=== PATIENT | female | born 1980 | race Caucasian/White ===

== ENCOUNTER 2017-03-26 22:51 | Inpatient (IN) | payer OTHER ==
[~2017-03-26] VITALS: Ht 157.5 cm; Wt 69.9 kg
[~2017-03-26 22:51] MED LIST: ADDE30CA PO; AMBI10TA PO; KLON1TAB PO; LEVO50TA4 PO; PERC5TAB6 PO; TRAZ50TA2 PO; VITA200015 PO; VITA500T53 PO; VITMTA PO
[2017-03-26] MEDS ORDERED: NS 1,000 ML IV ONE (23:30)
[2017-03-26 23:37] LABS: VENOUS O2 SATURATION 92.1 % (60.0-80.0); VENOUS PARTIAL PRESSURE CO2 40.2 mmHg (38.0-50.0); VENOUS PARTIAL PRESSURE O2 68.1 mmHg (30.0-50.0); VENOUS TOTAL CO2 22.6 MEQ/L (24.0-28.0)
[2017-03-26 23:38] LABS: BASO % 0.5 % (0.0-1.0); EOS % 0.5 % (0.0-3.0); LARGE UNSTAINED CELL # 0.1 K/mm3 (0.0-0.4); LYMPH # 1.5 K/mm3 (1.5-4.5); LYMPH % 19.9 % (24.0-44.0); MEAN CORPUSCULAR HEMOGLOBIN 24.6 pg (27.0-33.0); MEAN CORPUSCULAR HGB CONC 30.9 g/dl (32.0-36.5); MEAN CORPUSCULAR VOLUME 79.6 fl (80.0-96.0); MONO # 0.3 K/mm3 (0.0-0.8); MONO % 3.3 % (0.0-5.0); NEUTROPHILS # 5.6 K/mm3 (1.8-7.7); NEUTROPHILS % 74.8 % (36.0-66.0); PLATELET COUNT, AUTOMATED 389 k/mm3 (150-450); RED CELL DISTRIBUTION WIDTH 17.3 % (11.5-14.5); WHITE BLOOD COUNT 7.5 K/mm3 (4.0-10.0)
[2017-03-26 23:55] LABS: CONTROL LINE HCG INT CTR LINE PRESENT
[2017-03-27 00:07] LABS: ALBUMIN 3.9 GM/DL (3.2-5.2); ALBUMIN/GLOBULIN RATIO 1.05 (1.00-1.93); ALKALINE PHOSPHATASE 95 U/L (45-117); ALT/SGPT 17 U/L (12-78); ANION GAP 7 MEQ/L (8-16); AST/SGOT 15 U/L (15-37); BILIRUBIN,DIRECT 0.2 MG/DL (0.0-0.2); BILIRUBIN,TOTAL 0.9 MG/DL (0.2-1.0); BLOOD UREA NITROGEN 13 MG/DL (7-18); CALCIUM LEVEL 8.9 MG/DL (8.5-10.1); CARBON DIOXIDE LEVEL 26 MEQ/L (21-32); CHLORIDE LEVEL 107 MEQ/L (98-107); CREATININE FOR GFR 0.78 MG/DL (0.55-1.02); GLOMERULAR FILTRATION RATE > 60.0 (>60); GLUCOSE, FASTING 92 MG/DL (70-105); POTASSIUM SERUM 3.6 MEQ/L (3.5-5.1); SODIUM LEVEL 140 MEQ/L (136-145); TOTAL PROTEIN 7.6 GM/DL (6.4-8.2)
[2017-03-27 01:07] LABS: METHADONE URINE NEGATIVE (NEGATIVE)
[2017-03-27] MEDS ORDERED: NS 1,000 ML IV ONE (02:45)
--- NOTE | 2017-03-27 05:38 | ECGEPIP ---
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
[2017-03-27 15:49] VITALS: BP 123/74
[2017-03-27] MEDS ORDERED: ACETAMINOPHEN TAB 650MG DOSE (2X325MG) PO PRN (17:00)
[2017-03-27] MEDS ORDERED: MAALOX 30 ML SUSP *UDC PO PRN (17:00)
[2017-03-27] MEDS ORDERED: MOM 30ML SUSPENSION UDC PO PRN (17:00)
[2017-03-27] MEDS: QUEtiapine FUMARATE 100 MG TAB PO SCH (21:49)
[2017-03-27] MEDS: traZODone 50 MG TAB PO PRN (21:49)
[2017-03-28 06:59] VITALS: BP 105/60
--- NOTE | 2017-03-28 09:17 | HPEPDOC ---
Medical History and Physical Date of Admission March 27, 2017 at 11:42 History and Physical PCP: none ATTENDING: Dr. Jimi Simms HPI: 36yoF admitted to [facility] for unspecified depressive disorder, being medically examined today. Patient was evaluated in the emergency room after stating she had taken an unknown [id number] sleep aid 03/26/17. Poison control was consulted, the patient was observed in the emergency department and subsequently medically cleared for admission to [facility]. No acute medical complaints today. Denies any fevers, chills, weakness, fatigue, JEROME, CP, SOB, cough, palpitations, abdominal pain, N/V/D or changes in bowel or bladder habits. PMHx: Depression Anxiety Bipolar disorder PSHX: History of facial reconstructive surgery secondary to trauma/fracture SOCHX: Resides in: [place] Marital Status: Kids: None Employment: Unemployed Tobacco use: Denies ETOH: Denies Illicit Drugs: Patient states history of cocaine use, used prior to admission. History of heroin and ecstasy. IV Drug Use: Heroin in the past. Tattoos done unprofessionally: Denies FAMHX: Mother: Alive, well Father: Alive, diabetes Siblings: One brother Alive, well Children: None Unexpected deaths due to medical reasons: None. ROS: As noted in HPI, otherwise 11pt ROS of systems reviewed and remarkable only for LMP unknown PE: GEN: 36 yo F, appears stated age. Well-nourished, well developed. No acute distress. Alert and oriented x 3. Patient with flat affect, difficulty answering questions, avoids eye contact. HEENT: Normocephalic, atraumatic. Pupils are equal, round, and reactive to light. Extraocular movements are intact. No nystagmus appreciated. Sclera are nonicteric. Conjunctiva without injection. Nose midline. Nasal turbinates without bogginess. EACs both patent BL. TMs both visualized and lopez with good cone of light, no bulging or erythema. No facial asymmetry. Moist mucous membranes. Dentition fair. Pharynx pink and moist, no cobblestoning. Neck supple , trachea midline. No lymphadenopathy or thyromegaly appreciated. CHEST: Regular rate and rhythm, +S1, +S2 LUNGS: Clear to auscultation bilaterally. No wheezes, rales, or rhonchi. Breathing appears symmetric and easy. Patient is speaking in full sentences. No accessory muscle use. ABD: Round, soft, non-tender, non-distended. +Bowel sounds throughout. No rebound or guarding. No costovertebral angle tenderness. EXT: Pulses 2+ bilaterally dorsalis pedis and radial. No lower extremity edema appreciated. SKIN: [place], dry, warm. Capillary refill <2sec. No rashes. NEURO: Alert and oriented x 3. Cranial nerves III-XII are intact. No focal deficits appreciated. EK03/26/17 SINUS RHYTHM A&P: 36yoF admitted to [facility] for unspecified depressive disorder 1. Psych. Plan per Psychiatry. EKG on file. 2. History of IVDU. Patient states screened for HIV/hepatitis in the past. Declines rescreening. 3. Abnormal TSH. Recheck TFTs. 4. Follow up. No Primary Care Provider. Will attempt to establish PCP on discharge. 5. Substance use. Per psychiatry. 6. Lizzette safety aid present throughout exam. Vital Signs Vital Signs Date Time Temp Pulse Resp B/P (MAP) Pulse Ox O2 Delivery O2 Flow Rate FiO2 03/28/17 06:59 98.9 65 18 105/60 (75) Room Air 03/27/17 15:10 100 Laboratory Data Labs 24H Item Value Date Time Salicylates Level < 1.7 MG/DL L 03/26/172322 Urine Opiates Screen NEGATIVE 03/27/1714 Urine Methadone Screen NEGATIVE 03/27/1714 Acetaminophen Level < 2.0 UG/ML L 03/26/172322 Urine Barbiturates Screen NEGATIVE 03/27/1714 Urine Phencyclidine Screen NEGATIVE 03/27/17 001 Urine Amphetamines Screen NEGATIVE 03/27/17 001 Urine Benzodiazepines Screen NEGATIVE 03/27/1714 Urine Cocaine Metabolite Screen POSITIVE H 03/27/17 001 Urine Cannabinoids Screen NEGATIVE 03/27/1714 Ethyl Alcohol Level < 0.003 % 03/26/172322 Item Value Date Time White Blood Count 7.5 K/mm3 03/26/172322 Red Blood Count 4.11 M/mm3 03/26/172322 Hemoglobin 10.1 g/dl L 03/26/172322 Hematocrit 32.7 % L 03/26/172322 Mean Corpuscular Volume 79.6 fl L 5/30/17 2323 Mean Corpuscular Hemoglobin 24.6 pg L 03/26/173 Mean Corpuscular Hemoglobin Concent 30.9 g/dl L 03/26/173 Red Cell Distribution Width 17.3 % H 03/26/173 Platelet Count 389 k/mm3 03/26/173 Sodium Level 140 MEQ/L 03/26/17 2323 Potassium Level 3.6 MEQ/L 03/26/17 2323 Chloride Level 107 MEQ/L 03/26/17 2323 Carbon Dioxide Level 26 MEQ/L 03/26/17 2323 Anion Gap 7 MEQ/L L 03/26/17 2323 Blood Urea Nitrogen 13 MG/DL 03/26/17 2323 Creatinine 0.78 MG/DL 03/26/173 Glomerular Filtration Rate > 60.0 03/26/17 2323 Fasting Glucose 92 MG/DL 03/26/17 2323 Calcium Level 8.9 MG/DL 03/26/17 2323 Total Bilirubin 0.9 MG/DL 03/26/17 2323 Direct Bilirubin 0.2 MG/DL 03/26/17 2323 Aspartate Amino Transf (AST/SGOT) 15 U/L 03/26/17 2323 Alanine Aminotransferase (ALT/SGPT) 17 U/L 03/26/17 2323 Alkaline Phosphatase 95 U/L 03/26/17 2323 Total Creatine Kinase 109 U/L 03/26/173 Total Protein 7.6 GM/DL 03/26/17 2323 Albumin 3.9 GM/DL 03/26/173 Albumin/Globulin Ratio 1.05 03/26/173 Thyroid Stimulating Hormone (TSH) 6.000 uIU/ML H 03/26/173 Human Chorionic Gonadotropin, Qual NEGATIVE 03/26/17 2323 Home Medications No Active Prescriptions or Reported Meds Allergies Coded Allergies: No Known Allergies (Verified , 01/20/08) Erin Lombardo Mar 28, 2017 09:17
[2017-03-28] MEDS: QUEtiapine FUMARATE 100 MG TAB PO SCH (09:27)
[2017-03-28 18:00] VITALS: BP 108/64
[2017-03-28] MEDS ORDERED: LITHIUM CARBONATE 300 MG CAP PO SCH (21:00)
[2017-03-28] MEDS: traZODone 50 MG TAB PO PRN (21:19)
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
[2017-03-29 06:00] VITALS: BP 111/58
[2017-03-29 07:19] LABS: MEAN CORPUSCULAR HGB CONC 30.3 g/dl (32.0-36.5); MEAN CORPUSCULAR VOLUME 79.2 fl (80.0-96.0); RED CELL DISTRIBUTION WIDTH 17.4 % (11.5-14.5); WHITE BLOOD COUNT 5.6 K/mm3 (4.0-10.0)
[2017-03-29 07:53] LABS: THYROXINE (T4) 5.8 UG/DL (4.5-12.0)
[2017-03-29 08:18] LABS: PERCENT SATURATION 4.5 % (13.2-37.4)
[2017-03-29 08:52] LABS: FOLATE 11.6 NG/ML (>5.4)
[2017-03-29] MEDS: ATOMOXETINE HCL 40 MG CAP (STRATTERA) PO SCH (09:28)
[2017-03-29] MEDS: LITHIUM CARBONATE 300 MG CAP PO SCH (09:28)
[2017-03-29 18:00] VITALS: BP 115/63
[2017-03-29] MEDS: traZODone 50 MG TAB PO PRN (22:28)
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
[2017-03-30 06:06] VITALS: BP 133/63
[2017-03-30 06:44] LABS: MEAN CORPUSCULAR HEMOGLOBIN 24.7 pg (27.0-33.0); MEAN CORPUSCULAR VOLUME 79.4 fl (80.0-96.0); RED CELL DISTRIBUTION WIDTH 17.5 % (11.5-14.5); WHITE BLOOD COUNT 6.5 K/mm3 (4.0-10.0)
[2017-03-30] MEDS: ATOMOXETINE HCL 40 MG CAP (STRATTERA) PO SCH (09:30)
[2017-03-30] MEDS: LITHIUM CARBONATE 300 MG CAP PO SCH (09:30)
[2017-03-30 18:08] VITALS: BP 110/61
[2017-03-30] MEDS ORDERED: traZODone 100 MG TAB PO PRN (18:15)
--- NOTE | 2017-03-31 02:12 | IPN ---
DATE OF SERVICE: 03/30/2017 The patient today states that she is still depressed. She says her mood is about a 6/10 with the closer to 10 as the most depressed. She is not feeling as hopeless and helpless. Her sleep was "crappy." MENTAL STATUS EXAMINATION: This patient is alert and oriented times three. Eye contact is fair. Psychomotor activity is decreased. There is no formal thought disorder noted. She is verbally spontaneous. The patient remains depressed. Affect is full range and appropriate. She is not psychotic, suicidal, homicidal. Concentration and memory is good. Insight and judgment is poor. DIAGNOSES: 1. Bipolar disorder type 1, depressed, moderate. 2. Cocaine use disorder. TREATMENT PLAN: At this point, we will further observe and evaluate this patient for ongoing depression. She is denying suicidal ideation, so we will monitor for continued resolution of suicidal ideation and we will continue to titrate her medication as indicated. We will increase the trazodone to 100 mg nightly as needed for insomnia.
[2017-03-31 07:20] VITALS: BP 92/50
[2017-03-31 08:00] VITALS: BP 120/75
[2017-03-31] MEDS: LITHIUM CARBONATE 300 MG CAP PO SCH (08:54)
[2017-03-31] MEDS: ATOMOXETINE HCL 40 MG CAP (STRATTERA) PO SCH (08:54)
[2017-03-31 18:00] VITALS: BP 117/75
[2017-03-31] MEDS ORDERED: traZODone 50 MG TAB PO PRN (18:45)
--- NOTE | 2017-04-01 04:57 | IPN ---
DATE OF SERVICE: 03/31/2017 The patient today states that "my mood is better." She says her mood is about a 3 or 4/10 with the closer to 10 as the most depressed. She did not sleep good, however, even with the trazodone. MENTAL STATUS EXAMINATION: This patient is alert and oriented times three. Eye contact is fair. She is verbally spontaneous. There is no formal thought disorder noted. Her mood is "better." Affect is full range and appropriate. She is not psychotic, suicidal, homicidal. Concentration is fair. Memory intact. Insight and judgment fair. DIAGNOSES: 1. Bipolar disorder, depressed. 2. Cocaine use disorder. TREATMENT PLAN: At this point, we will further observe and evaluate this patient for continued resolution of her depression. At this point, the patient will be further monitored for continued resolution of suicidal ideation and continued stabilization of her mood.
[2017-04-01 06:38] VITALS: BP 108/63
[2017-04-01] MEDS ORDERED: FERROUS SULFATE 325MG TAB PO SCH (09:00)
[2017-04-01] MEDS: LITHIUM CARBONATE 300 MG CAP PO SCH (09:24)
[2017-04-01] MEDS: ATOMOXETINE HCL 40 MG CAP (STRATTERA) PO SCH (09:24)
[2017-04-01] MEDS ORDERED: LITH300C PO (12:21)
[2017-04-01] MEDS ORDERED: FERR325T PO (12:21)
[2017-04-01] MEDS ORDERED: TRAZO50TA PO (12:21)
[2017-04-01] MEDS ORDERED: ATOM40CA PO (12:21)
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
== END 2017-04-01 13:29 | disposition home or self-care (01) | DRG 753 ==
LOC: M ED 03-27 00:51 → M ED INP 03-27 11:42 → M PSY 03-27 15:45
PROVIDERS: ADMIT Psychiatry & Neurology Psychiatry; ATTEND Psychiatry & Neurology Psychiatry
DX: F31.9 Bipolar disorder, unspecified (principal); F60.3 Borderline personality disorder; F90.9 Attention-deficit hyperactivity disorder, unspecified type; Z79.899 Other long term (current) drug therapy; F14.90 Cocaine use, unspecified, uncomplicated

== ENCOUNTER → 2017-06-04 | Outpatient (CLI) | payer OTHER ==
[~2017-06-04] MED LIST changes: -ADDE30CA PO; +ADDE30CA3 PO; +ATIV1TAB7; +ATOM40CA PO; +CIPR-249 PO; +FERR1TAB8 PO; +FLOM5CAP PO; +GABA-279; +LITH300C PO; +NAPR500T3 PO; +PERC5TAB12 PO; -PERC5TAB6 PO; +ROBA500T PO; +TRAZO50TA PO; +ZOFR4TAB3 PO
[2017-06-04 09:43] LABS: BASO % 0.6 % (0.0-1.0); EOS # 0.1 K/mm3 (0.0-0.50); EOS % 2.2 % (0.0-3.0); LARGE UNSTAINED CELL # 0.1 K/mm3 (0.0-0.4); LARGE UNSTAINED CELL % 1.4 % (0.0-4.0); LYMPH # 1.2 K/mm3 (1.5-4.5); LYMPH % 22.9 % (24.0-44.0); MEAN CORPUSCULAR HEMOGLOBIN 24.8 pg (27.0-33.0); MEAN CORPUSCULAR HGB CONC 30.4 g/dl (32.0-36.5); MEAN CORPUSCULAR VOLUME 81.5 fl (80.0-96.0); MONO # 0.2 K/mm3 (0.0-0.8); MONO % 4.3 % (0.0-5.0); NEUTROPHILS # 3.6 K/mm3 (1.8-7.7); NEUTROPHILS % 68.5 % (36.0-66.0); PLATELET COUNT, AUTOMATED 391 k/mm3 (150-450); RED CELL DISTRIBUTION WIDTH 15.9 % (11.5-14.5); WHITE BLOOD COUNT 5.2 K/mm3 (4.0-10.0)
[2017-06-04 10:04] LABS: ALBUMIN 3.5 GM/DL (3.2-5.2); ALBUMIN/GLOBULIN RATIO 1.09 (1.00-1.93); ALKALINE PHOSPHATASE 83 U/L (45-117); ALT/SGPT 16 U/L (12-78); ANION GAP 7 MEQ/L (8-16); AST/SGOT 7 U/L (15-37); BILIRUBIN,TOTAL 0.8 MG/DL (0.2-1.0); BLOOD UREA NITROGEN 15 MG/DL (7-18); CALCIUM LEVEL 8.5 MG/DL (8.5-10.1); CARBON DIOXIDE LEVEL 28 MEQ/L (21-32); CHLORIDE LEVEL 106 MEQ/L (98-107); CHOLESTEROL LEVEL 148 MG/DL (<200); CREATININE FOR GFR 0.71 MG/DL (0.55-1.02); GLOMERULAR FILTRATION RATE > 60.0 (>60); GLUCOSE, FASTING 78 MG/DL (70-105); SODIUM LEVEL 141 MEQ/L (136-145); TOTAL PROTEIN 6.7 GM/DL (6.4-8.2); TRIGLYCERIDES LEVEL 32 MG/DL (<150)
== END ==
LOC: M LAB 08:58
PROVIDERS: ATTEND Registered Nurse Psychiatric/Mental Health
DX: F31.9 Bipolar disorder, unspecified (principal)

== ENCOUNTER 2017-07-10 12:34 | Emergency (ER) | payer OTHER ==
[~2017-07-10] VITALS: Ht 154.9 cm; Wt 68.2 kg
[~2017-07-10 12:34] MED LIST changes: -ATIV1TAB7; -CIPR-249 PO; -FLOM5CAP PO; -GABA-279; -NAPR500T3 PO; -ROBA500T PO; -ZOFR4TAB3 PO
[2017-07-10] MEDS ORDERED: GABA-279 (13:10)
[2017-07-10] MEDS ORDERED: ATIV1TAB7 (13:10)
[2017-07-10] MEDS ORDERED: NS 1,000 ML IV SCH (13:19)
[2017-07-10] MEDS ORDERED: KETOROLAC 30 MG/ML VIAL (J1885) IV ONE (13:30)
[2017-07-10] MEDS ORDERED: MORPHINE 4 MG/ML 1ML SYRINGE IV PRN (13:30)
[2017-07-10] MEDS ORDERED: ONDANSETRON 4MG/2ML VIAL (J2405) IV ONE (13:30)
[2017-07-10 14:09] LABS: BASO % 0.8 % (0.0-1.0); EOS # 0.1 K/mm3 (0.0-0.50); EOS % 2.2 % (0.0-3.0); LARGE UNSTAINED CELL # 0.1 K/mm3 (0.0-0.4); LARGE UNSTAINED CELL % 1.8 % (0.0-4.0); LYMPH # 1.3 K/mm3 (1.5-4.5); LYMPH % 25.4 % (24.0-44.0); MEAN CORPUSCULAR HEMOGLOBIN 24.9 pg (27.0-33.0); MEAN CORPUSCULAR HGB CONC 31.4 g/dl (32.0-36.5); MEAN CORPUSCULAR VOLUME 79.4 fl (80.0-96.0); MONO # 0.2 K/mm3 (0.0-0.8); MONO % 3.3 % (0.0-5.0); NEUTROPHILS # 3.3 K/mm3 (1.8-7.7); NEUTROPHILS % 66.5 % (36.0-66.0); PLATELET COUNT, AUTOMATED 386 k/mm3 (150-450); RED CELL DISTRIBUTION WIDTH 16.8 % (11.5-14.5); WHITE BLOOD COUNT 4.9 K/mm3 (4.0-10.0)
[2017-07-10 14:13] LABS: INR 0.94
[2017-07-10 14:28] LABS: CONTROL LINE HCG INT CTR LINE PRESENT
[2017-07-10 14:40] LABS: ALBUMIN 4.1 GM/DL (3.2-5.2); ALBUMIN/GLOBULIN RATIO 1.03 (1.00-1.93); ALKALINE PHOSPHATASE 86 U/L (45-117); ALT/SGPT 14 U/L (12-78); ANION GAP 8 MEQ/L (8-16); AST/SGOT 8 U/L (15-37); BILIRUBIN,DIRECT 0.2 MG/DL (0.0-0.2); BLOOD UREA NITROGEN 20 MG/DL (7-18); CALCIUM LEVEL 9.2 MG/DL (8.5-10.1); CARBON DIOXIDE LEVEL 27 MEQ/L (21-32); CHLORIDE LEVEL 109 MEQ/L (98-107); CREATININE FOR GFR 1.01 MG/DL (0.55-1.02); GLOMERULAR FILTRATION RATE > 60.0 (>60); GLUCOSE, FASTING 102 MG/DL (70-105); POTASSIUM SERUM 4.1 MEQ/L (3.5-5.1); SODIUM LEVEL 144 MEQ/L (136-145); TOTAL PROTEIN 8.1 GM/DL (6.4-8.2)
--- NOTE | 2017-07-10 14:54 | REP ---
Clinical: Right renal colic. Comparison: 06/17/2016. Findings: Mild right-sided acute obstructive uropathy with edematous enlargement to the right kidney and hydroureteronephrosis is secondary to a 4 mm obstructing calculus at the ureterovesical junction. Liver, spleen, pancreas, gallbladder, bilateral adrenal glands and left kidney are normal. The enteric system is without obstruction or acute inflammatory process. Pelvis demonstrates normal bladder with 4 mm calculus at the ureterovesical junction. Uterus and adnexa appear normal. No ascites. No free air. Evidence for prior gastric bypass and small bowel anastomoses. Musculoskeletal structures are intact. Lung bases are clear. Visualized portions of the heart and pericardium are normal. Impression: 1. Acute right-sided obstructive uropathy secondary to a 4 mm calculus at the ureterovesicle junction. Urinary tract system is otherwise unremarkable. 2. No further acute abdominopelvic pathology appreciated. Signed by Biju Pereira MD 07/10/2017 02:46 P
[2017-07-10] MEDS ORDERED: CIPR-249 PO (15:35)
[2017-07-10] MEDS ORDERED: PERC5TAB12 PO (15:35)
[2017-07-10] MEDS ORDERED: ZOFR4TAB3 PO (15:35)
[2017-07-10 15:49] VITALS: BP 109/85
== END 2017-07-10 15:50 | disposition home or self-care (01) ==
LOC: M ED 12:34
DX: N20.1 Calculus of ureter (principal); R11.10 Vomiting, unspecified; Z79.899 Other long term (current) drug therapy
CPT/HCPCS: 74176; 80048; 80076; 81001; 83690; 84703; 85025; 85610; 87086; 96374; 96375; 99283; J1885; J2405

== ENCOUNTER 2017-07-16 06:08 | Emergency (ER) | payer OTHER ==
[~2017-07-16] VITALS: Ht 154.9 cm; Wt 72.8 kg
[~2017-07-16 06:08] MED LIST changes: +ATIV1TAB7; +CIPR-249 PO; +GABA-279; +ZOFR4TAB3 PO
[2017-07-16] MEDS ORDERED: NS 1,000 ML IV ONE (06:45)
[2017-07-16] MEDS: MORPHINE 4 MG/ML 1ML SYRINGE IV PRN ×2 (06:50→07:09)
[2017-07-16] MEDS ORDERED: ONDANSETRON 4MG/2ML VIAL (J2405) IV ONE (07:00)
[2017-07-16 07:24] LABS: BASO % 0.8 % (0.0-1.0); EOS # 0.1 K/mm3 (0.0-0.50); EOS % 2.2 % (0.0-3.0); LARGE UNSTAINED CELL # 0.1 K/mm3 (0.0-0.4); LARGE UNSTAINED CELL % 2.2 % (0.0-4.0); LYMPH # 2.2 K/mm3 (1.5-4.5); LYMPH % 42.5 % (24.0-44.0); MEAN CORPUSCULAR HEMOGLOBIN 25.4 pg (27.0-33.0); MEAN CORPUSCULAR HGB CONC 31.4 g/dl (32.0-36.5); MONO # 0.3 K/mm3 (0.0-0.8); MONO % 5.1 % (0.0-5.0); NEUTROPHILS # 2.4 K/mm3 (1.8-7.7); NEUTROPHILS % 47.1 % (36.0-66.0); PLATELET COUNT, AUTOMATED 343 k/mm3 (150-450)
[2017-07-16] MEDS ORDERED: KETOROLAC 30 MG/ML VIAL (J1885) IV ONE (07:45)
[2017-07-16 07:46] LABS: ALBUMIN 3.7 GM/DL (3.2-5.2); ALBUMIN/GLOBULIN RATIO 0.97 (1.00-1.93); ALKALINE PHOSPHATASE 75 U/L (45-117); ALT/SGPT 13 U/L (12-78); ANION GAP 5 MEQ/L (8-16); AST/SGOT 4 U/L (15-37); BILIRUBIN,DIRECT 0.2 MG/DL (0.0-0.2); BILIRUBIN,TOTAL 0.9 MG/DL (0.2-1.0); BLOOD UREA NITROGEN 19 MG/DL (7-18); CALCIUM LEVEL 8.7 MG/DL (8.5-10.1); CARBON DIOXIDE LEVEL 30 MEQ/L (21-32); CHLORIDE LEVEL 105 MEQ/L (98-107); CREATININE FOR GFR 1.09 MG/DL (0.55-1.02); GLOMERULAR FILTRATION RATE > 60.0 (>60); GLUCOSE, FASTING 75 MG/DL (70-105); POTASSIUM SERUM 3.3 MEQ/L (3.5-5.1); SODIUM LEVEL 140 MEQ/L (136-145); TOTAL PROTEIN 7.5 GM/DL (6.4-8.2)
--- NOTE | 2017-07-16 08:28 | REP ---
CT of the abdomen pelvis without IV or bowel contrast: Comparison is 07/10/2017. The 4 ml calcification in the distal right ureter at the UVJ is unchanged. The right hydronephrosis/hydroureter is unchanged. The visualized lung mann are clear and unchanged. The unenhanced hepatic parenchyma, gallbladder, pancreas and spleen are unremarkable and unchanged. The adrenals are unremarkable. Left kidney is unremarkable. Abdominal aorta is unremarkable . There are multiple surgical staple lines in bowel loops as previously. There is no bowel distension or obstruction. Pelvis: The uterus and adnexa are unremarkable except for phleboliths, unchanged. There is no ascites or adenopathy. The bladder is incompletely is distended and cannot be further evaluated. Impression: Persisting a 4 mm calculus at the distal tip of the right ureter at the UVJ. Right hydronephrosis. These findings are unchanged from the comparison study. Signed by Viral James MD 07/16/2017 08:19 A
[2017-07-16 08:31] LABS: MICROSCOPIC INDICATED? MAN YES (NO)
[2017-07-16 08:36] LABS: BACTERIA, URINE MOD AMOUNT; HYALINE CAST, URINE NONE SEEN /lpf (0-1); SQUAMOUS EPITHELIAL CELL URINE LARGE AMOUNT /hpf (SMALL AMT)
[2017-07-16 08:37] LABS: MICROSCOPIC EXAM PERFORMED
[2017-07-16 08:38] LABS: WBC, URINE 15-20 /hpf (0-3)
[2017-07-16] MEDS ORDERED: FLOM5CAP PO (09:03)
[2017-07-16] MEDS ORDERED: PERC5TAB12 PO (09:04)
[2017-07-16 09:08] VITALS: BP 115/68
== END 2017-07-16 09:16 | disposition home or self-care (01) ==
LOC: M ED 06:08
DX: N20.1 Calculus of ureter (principal); E03.9 Hypothyroidism, unspecified; F31.9 Bipolar disorder, unspecified; F41.9 Anxiety disorder, unspecified; Z79.899 Other long term (current) drug therapy
CPT/HCPCS: 36415; 74176; 80048; 80076; 81000; 83690; 85025; 87086; 96374; 96375; 96376; 99284; J1885; J2405

== ENCOUNTER 2017-08-15 08:22 | Emergency (ER) | payer OTHER ==
[~2017-08-15] VITALS: Ht 154.9 cm; Wt 70.1 kg
[~2017-08-15 08:22] MED LIST changes: +FLOM5CAP PO
[2017-08-15] MEDS ORDERED: IBUPROFEN 600 MG TAB PO ONE (09:30)
[2017-08-15] MEDS ORDERED: NAPR500T3 PO (11:05)
[2017-08-15] MEDS ORDERED: ROBA500T PO (11:05)
[2017-08-15 11:24] VITALS: BP 101/64
--- NOTE | 2017-08-15 11:25 | REP ---
CERVICAL SPINE, FOUR VIEWS: HISTORY: Neck pain. There is no acute fracture or subluxation. The intervertebral discs are normal in height. IMPRESSION: There is no acute fracture or subluxation. Signed by Zach Lobo MD 08/15/2017 11:26 A
== END 2017-08-15 11:26 | disposition home or self-care (01) ==
LOC: M ED 08:22
DX: M62.838 Other muscle spasm (principal)

== ENCOUNTER 2017-11-16 21:53 | Emergency (ER) | payer OTHER ==
[2017-11-16] MEDS: IBUPROFEN 600 MG TAB PO (23:32)
== END 2017-11-16 23:43 | disposition home or self-care (01) ==
LOC: M ED 21:53
DX: J01.90 Acute sinusitis, unspecified (principal); Z79.899 Other long term (current) drug therapy
CPT/HCPCS: 99283

== ENCOUNTER → 2018-03-26 | Outpatient (REF) | payer OTHER ==
[2018-03-27 10:59] LABS: BASO # 0.1 10^3/uL (0.0-0.2); BASO % 1.4 % (0.0-1.0); EOS # 0.2 10^3/uL (0.0-0.50); EOS % 3.4 % (0.0-3.0); HEMATOCRIT 27.2 % (36.0-47.0); HEMOGLOBIN 7.8 g/dl (12.0-15.5); IMMATURE GRANULOCYTE % 0.2 % (0-3.0); LYMPH # 1.3 10^3/uL (1.5-4.5); LYMPH % 25.8 % (24.0-44.0); MEAN CORPUSCULAR HEMOGLOBIN 22.7 pg (27.0-33.0); MEAN CORPUSCULAR HGB CONC 28.7 g/dl (32.0-36.5); MEAN CORPUSCULAR VOLUME 79.3 fl (80.0-96.0); MONO # 0.3 10^3/uL (0.0-0.8); MONO % 5.6 % (0.0-5.0); NEUTROPHILS # 3.2 10^3/uL (1.8-7.7); NEUTROPHILS % 63.6 % (36.0-66.0); PLATELET COUNT, AUTOMATED 400 10^3/uL (150-450); RED BLOOD COUNT 3.43 10^6/uL (4.00-5.40); RED CELL DISTRIBUTION WIDTH 18.1 % (11.5-14.5)
[2018-03-27 11:18] LABS: ALBUMIN 3.5 GM/DL (3.2-5.2); ALBUMIN/GLOBULIN RATIO 0.97 (1.00-1.93); ALKALINE PHOSPHATASE 100 U/L (45-117); ALT/SGPT 12 U/L (12-78); ANION GAP 7 MEQ/L (8-16); AST/SGOT 13 U/L (7-37); BILIRUBIN,TOTAL 0.9 MG/DL (0.2-1.0); BLOOD UREA NITROGEN 15 MG/DL (7-18); CARBON DIOXIDE LEVEL 26 MEQ/L (21-32); CHLORIDE LEVEL 112 MEQ/L (98-107); CHOLESTEROL LEVEL 127 MG/DL (<200); CHOLESTEROL RISK RATIO 2.953 (<5); CREATININE FOR GFR 0.77 MG/DL (0.55-1.30); FREE T4 0.71 NG/DL (0.76-1.46); GLOMERULAR FILTRATION RATE > 60.0 (>60); GLUCOSE, FASTING 72 MG/DL (70-100); HDL CHOLESTEROL 43 MG/DL (>40); LDL CHOLESTEROL 74.4 MG/DL (<100); NON-HDL-C 84 MG/DL; POTASSIUM SERUM 3.7 MEQ/L (3.5-5.1); SODIUM LEVEL 145 MEQ/L (136-145); TOTAL PROTEIN 7.1 GM/DL (6.4-8.2); TRIGLYCERIDES LEVEL 48 MG/DL (<150)
[2018-03-27 12:08] LABS: ESTIMATED AVERAGE GLUCOSE 100 MG/DL (60-110); HEMOGLOBIN A1c 5.1 %
== END ==
LOC: M SFHCPLAZ 09:45
DX: E03.9 Hypothyroidism, unspecified (principal); E66.3 Overweight; F43.10 Post-traumatic stress disorder, unspecified

== ENCOUNTER 2018-03-27 17:50 | Emergency (ER) | payer OTHER ==
[2018-03-27] MEDS: NS 1,000 ML IV (18:30)
[2018-03-27 18:51] LABS: BASO # 0.1 10^3/uL (0.0-0.2); BASO % 1.1 % (0.0-1.0); EOS # 0.1 10^3/uL (0.0-0.50); EOS % 2.8 % (0.0-3.0); HEMATOCRIT 24.5 % (36.0-47.0); HEMOGLOBIN 7.2 g/dl (12.0-15.5); IMMATURE GRANULOCYTE % 0.2 % (0-3.0); LYMPH # 1.4 10^3/uL (1.5-4.5); LYMPH % 29.3 % (24.0-44.0); MEAN CORPUSCULAR HEMOGLOBIN 22.5 pg (27.0-33.0); MEAN CORPUSCULAR HGB CONC 29.4 g/dl (32.0-36.5); MEAN CORPUSCULAR VOLUME 76.6 fl (80.0-96.0); MONO # 0.2 10^3/uL (0.0-0.8); MONO % 4.8 % (0.0-5.0); NEUTROPHILS # 2.9 10^3/uL (1.8-7.7); NEUTROPHILS % 61.8 % (36.0-66.0); PLATELET COUNT, AUTOMATED 375 10^3/uL (150-450); RED CELL DISTRIBUTION WIDTH 17.8 % (11.5-14.5); WHITE BLOOD COUNT 4.6 10^3/uL (4.0-10.0)
[2018-03-27 19:04] LABS: INR 0.95; PROTHROMBIN TIME 12.8 SECONDS (12.4-14.5)
[2018-03-27] MEDS: MORPHINE 2 MG/ML 1ML SYRINGE (J2270) IV (19:24)
[2018-03-27] MEDS: PANTOPRAZOLE 40MG INJ (PROTONIX) (C9113) IV (19:25)
[2018-03-27] MEDS: ONDANSETRON 4MG/2ML VIAL (J2405) IV (19:25)
[2018-03-27 20:35] LABS: CONTROL LINE HCG INT CTR LINE PRESENT; HCG, SERUM QUALITATIVE NEGATIVE (NEGATIVE)
== END 2018-03-27 19:59 | disposition home or self-care (01) ==
LOC: M ED 19:59
DX: D64.9 Anemia, unspecified (principal); N93.9 Abnormal uterine and vaginal bleeding, unspecified; Z79.899 Other long term (current) drug therapy
CPT/HCPCS: C9113

== ENCOUNTER 2018-03-29 12:45 | Observation (INO) | payer OTHER ==
[2018-03-29 13:26] LABS: BASO # 0.1 10^3/uL (0.0-0.2); BASO % 1.3 % (0.0-1.0); EOS # 0.2 10^3/uL (0.0-0.50); EOS % 2.9 % (0.0-3.0); HEMATOCRIT 26.3 % (36.0-47.0); HEMOGLOBIN 7.8 g/dl (12.0-15.5); IMMATURE GRANULOCYTE % 0.2 % (0-3.0); LYMPH # 1.8 10^3/uL (1.5-4.5); LYMPH % 32.8 % (24.0-44.0); MEAN CORPUSCULAR HEMOGLOBIN 22.7 pg (27.0-33.0); MEAN CORPUSCULAR HGB CONC 29.7 g/dl (32.0-36.5); MEAN CORPUSCULAR VOLUME 76.7 fl (80.0-96.0); MONO # 0.2 10^3/uL (0.0-0.8); MONO % 4.1 % (0.0-5.0); NEUTROPHILS # 3.2 10^3/uL (1.8-7.7); NEUTROPHILS % 58.7 % (36.0-66.0); PLATELET COUNT, AUTOMATED 378 10^3/uL (150-450); RED BLOOD COUNT 3.43 10^6/uL (4.00-5.40); RED CELL DISTRIBUTION WIDTH 17.6 % (11.5-14.5); WHITE BLOOD COUNT 5.4 10^3/uL (4.0-10.0)
[2018-03-29 13:32] LABS: INR 0.96; PROTHROMBIN TIME 12.9 SECONDS (12.4-14.5)
[2018-03-29 13:33] LABS: PARTIAL THROMBOPLASTIN TIME 28.7 SECONDS (26.8-37.9)
[2018-03-29 13:38] LABS: CONTROL LINE HCG INT CTR LINE PRESENT; HCG, SERUM QUALITATIVE NEGATIVE (NEGATIVE)
[2018-03-29 13:45] LABS: ALBUMIN 3.5 GM/DL (3.2-5.2); ALKALINE PHOSPHATASE 112 U/L (45-117); ALT/SGPT 16 U/L (12-78); ANION GAP 5 MEQ/L (8-16); AST/SGOT 8 U/L (7-37); BILIRUBIN,DIRECT 0.1 MG/DL (0.0-0.2); BILIRUBIN,TOTAL 0.7 MG/DL (0.2-1.0); BLOOD UREA NITROGEN 12 MG/DL (7-18); CARBON DIOXIDE LEVEL 26 MEQ/L (21-32); CHLORIDE LEVEL 113 MEQ/L (98-107); GLOMERULAR FILTRATION RATE > 60.0 (>60); GLUCOSE, FASTING 90 MG/DL (70-100); LIPASE 105 U/L (73-393); POTASSIUM SERUM 3.4 MEQ/L (3.5-5.1); SODIUM LEVEL 144 MEQ/L (136-145); TOTAL PROTEIN 7.4 GM/DL (6.4-8.2)
[2018-03-29] MEDS: POTASSIUM CHLORIDE 10 MEQ SR TABLET PO (16:56)
[2018-03-29] MEDS ORDERED: ALPRAZolam 0.25 MG TAB PO (17:15)
[2018-03-29] MEDS ORDERED: ACETAMINOPHEN TAB 650MG DOSE (2X325MG) PO (19:00)
[2018-03-29] MEDS: MIRTAZAPINE 15 MG TAB PO (20:24)
[2018-03-29] MEDS: FERROUS SULFATE 325MG TAB PO (20:24)
[2018-03-29 22:30] LABS: HEMATOCRIT 26.5 % (36.0-47.0)
[2018-03-29 23:30] LABS: IMMEDIATE SPIN CROSSMATCH 1 2
[2018-03-30 06:26] LABS: BASO % 0.7 % (0.0-1.0); EOS # 0.2 10^3/uL (0.0-0.50); EOS % 2.9 % (0.0-3.0); HEMATOCRIT 28.8 % (36.0-47.0); HEMOGLOBIN 8.7 g/dl (12.0-15.5); IMMATURE GRANULOCYTE % 0.2 % (0-3.0); LYMPH # 2.7 10^3/uL (1.5-4.5); MEAN CORPUSCULAR HEMOGLOBIN 23.8 pg (27.0-33.0); MEAN CORPUSCULAR HGB CONC 30.2 g/dl (32.0-36.5); MEAN CORPUSCULAR VOLUME 78.7 fl (80.0-96.0); MONO # 0.3 10^3/uL (0.0-0.8); MONO % 5.4 % (0.0-5.0); NEUTROPHILS # 2.9 10^3/uL (1.8-7.7); NEUTROPHILS % 46.8 % (36.0-66.0); PLATELET COUNT, AUTOMATED 317 10^3/uL (150-450); RED BLOOD COUNT 3.66 10^6/uL (4.00-5.40); RED CELL DISTRIBUTION WIDTH 17.4 % (11.5-14.5); WHITE BLOOD COUNT 6.1 10^3/uL (4.0-10.0)
[2018-03-30 06:42] LABS: ALBUMIN 2.8 GM/DL (3.2-5.2); ALBUMIN/GLOBULIN RATIO 0.85 (1.00-1.93); ALKALINE PHOSPHATASE 92 U/L (45-117); ALT/SGPT 12 U/L (12-78); ANION GAP 7 MEQ/L (8-16); AST/SGOT 6 U/L (7-37); BILIRUBIN,TOTAL 1.2 MG/DL (0.2-1.0); BLOOD UREA NITROGEN 12 MG/DL (7-18); CALCIUM LEVEL 7.7 MG/DL (8.5-10.1); CARBON DIOXIDE LEVEL 23 MEQ/L (21-32); CHLORIDE LEVEL 116 MEQ/L (98-107); CREATININE FOR GFR 0.74 MG/DL (0.55-1.30); GLOMERULAR FILTRATION RATE > 60.0 (>60); GLUCOSE, FASTING 76 MG/DL (70-100); POTASSIUM SERUM 3.5 MEQ/L (3.5-5.1); SODIUM LEVEL 146 MEQ/L (136-145); TOTAL PROTEIN 6.1 GM/DL (6.4-8.2)
[2018-03-30] MEDS ORDERED: AMPHETAMINE/DEXTROAMPHETAMINE 5 MG *ER* CAPSULE (ADDERALL XR) PO (09:00)
[2018-03-30] MEDS: FERROUS SULFATE 325MG TAB PO (09:10)
[2018-03-30] MEDS: OLANZapine 2.5MG TABLET PO ×2 (09:10→09:25)
[2018-03-30] MEDS: ADDERALL 5 MG TAB PO ×2 (09:10→09:24)
[2018-03-30 12:20] LABS: HEMATOCRIT 28.6 % (36.0-47.0); HEMOGLOBIN 8.9 g/dl (12.0-15.5)
[2018-03-30 18:37] LABS: SLIDE REVIEW Report; SOURCE PERIPHERAL SMEAR
[2018-03-30 18:39] LABS: RETIC HEMOGLOBIN EQUIVALENT 21.8 pg (24-36); RETICULOCYTE # 29.1 10^9/L (17-77); RETICULOCYTE % 0.7 % (0.5-1.5)
[2018-03-30 18:46] LABS: REASON FOR REVIEW ANEMIA / RBC MORPH
[2018-03-30 18:59] LABS: LDH LACTATE DEHYDROGENASE 159 U/L (84-246)
[2018-03-30 18:59] LABS: BILIRUBIN,DIRECT 0.2 MG/DL (0.0-0.2)
[2018-03-30] MEDS: MIRTAZAPINE 15 MG TAB PO (21:20)
[2018-03-31] MEDS: ADDERALL 5 MG TAB PO (08:50)
[2018-03-31] MEDS: FERROUS SULFATE 325MG TAB PO (08:50)
[2018-03-31] MEDS: OLANZapine 2.5MG TABLET PO (08:50)
[2018-03-31 10:09] LABS: BASO # 0.1 10^3/uL (0.0-0.2); EOS # 0.2 10^3/uL (0.0-0.50); EOS % 3.4 % (0.0-3.0); HEMATOCRIT 30.2 % (36.0-47.0); HEMOGLOBIN 9.3 g/dl (12.0-15.5); IMMATURE GRANULOCYTE % 0.2 % (0-3.0); LYMPH # 1.9 10^3/uL (1.5-4.5); MEAN CORPUSCULAR HEMOGLOBIN 23.8 pg (27.0-33.0); MEAN CORPUSCULAR HGB CONC 30.8 g/dl (32.0-36.5); MEAN CORPUSCULAR VOLUME 77.2 fl (80.0-96.0); MONO # 0.3 10^3/uL (0.0-0.8); MONO % 4.2 % (0.0-5.0); NEUTROPHILS # 3.5 10^3/uL (1.8-7.7); NEUTROPHILS % 59.2 % (36.0-66.0); PLATELET COUNT, AUTOMATED 350 10^3/uL (150-450); RED BLOOD COUNT 3.91 10^6/uL (4.00-5.40); RED CELL DISTRIBUTION WIDTH 17.9 % (11.5-14.5)
[2018-03-31 10:40] LABS: ANION GAP 3 MEQ/L (8-16); BLOOD UREA NITROGEN 11 MG/DL (7-18); CALCIUM LEVEL 8.1 MG/DL (8.5-10.1); CARBON DIOXIDE LEVEL 29 MEQ/L (21-32); CHLORIDE LEVEL 112 MEQ/L (98-107); CREATININE FOR GFR 0.83 MG/DL (0.55-1.30); GLOMERULAR FILTRATION RATE > 60.0 (>60); GLUCOSE, FASTING 98 MG/DL (70-100); POTASSIUM SERUM 3.7 MEQ/L (3.5-5.1); SODIUM LEVEL 144 MEQ/L (136-145)
== END 2018-03-31 16:05 | disposition home or self-care (01) ==
LOC: M ED 12:45 → M ED INP 16:56 → M MSPAV 18:30
DX: D64.9 Anemia, unspecified (principal); N92.0 Excessive and frequent menstruation with regular cycle; E80.6 Other disorders of bilirubin metabolism; F31.9 Bipolar disorder, unspecified; E03.9 Hypothyroidism, unspecified; G50.1 Atypical facial pain; R94.31 Abnormal electrocardiogram [ECG] [EKG]; G47.09 Other insomnia; F90.9 Attention-deficit hyperactivity disorder, unspecified type; F41.9 Anxiety disorder, unspecified; Z79.899 Other long term (current) drug therapy
CPT/HCPCS: 76856

== ENCOUNTER → 2018-04-10 | Outpatient (REF) | payer OTHER ==
[2018-04-10 16:42] LABS: BASO # 0.1 10^3/uL (0.0-0.2); BASO % 1.2 % (0.0-1.0); EOS # 0.2 10^3/uL (0.0-0.50); EOS % 3.2 % (0.0-3.0); HEMATOCRIT 31.9 % (36.0-47.0); HEMOGLOBIN 9.7 g/dl (12.0-15.5); IMMATURE GRANULOCYTE % 0.2 % (0-3.0); LYMPH # 2.5 10^3/uL (1.5-4.5); LYMPH % 41.3 % (24.0-44.0); MEAN CORPUSCULAR HEMOGLOBIN 24.1 pg (27.0-33.0); MEAN CORPUSCULAR HGB CONC 30.4 g/dl (32.0-36.5); MEAN CORPUSCULAR VOLUME 79.2 fl (80.0-96.0); MONO # 0.4 10^3/uL (0.0-0.8); MONO % 7.4 % (0.0-5.0); NEUTROPHILS # 2.8 10^3/uL (1.8-7.7); NEUTROPHILS % 46.7 % (36.0-66.0); PLATELET COUNT, AUTOMATED 342 10^3/uL (150-450); RED BLOOD COUNT 4.03 10^6/uL (4.00-5.40); RED CELL DISTRIBUTION WIDTH 19.5 % (11.5-14.5)
== END ==
LOC: M SFHCPLAZ 14:09
DX: D50.9 Iron deficiency anemia, unspecified (principal)
CPT/HCPCS: 85025

== ENCOUNTER 2018-05-03 10:03 | Emergency (ER) | payer OTHER ==
[2018-05-03 11:59] LABS: KETONE, URINE AUTO RFX NEGATIVE (NEGATIVE); LEUKOCYTE ESTERASE UR AUTO RFX NEGATIVE (NEGATIVE); MUCUS, URINE RFX LARGE (NEGATIVE); NITRITE, URINE AUTO RFX NEGATIVE (NEGATIVE); RBC, URINE AUTO RFX 0 /HPF (0-3); SPECIFIC GRAVITY UR AUTO RFX 1.032 (1.002-1.035); SQUAM EPITHELIAL CELL UR AURFX 1 /HPF (0-6); WBC, URINE AUTO RFX 1 /HPF (0-3)
[2018-05-03 12:34] LABS: BASO # 0.1 10^3/uL (0.0-0.2); EOS # 0.1 10^3/uL (0.0-0.50); EOS % 1.8 % (0.0-3.0); HEMATOCRIT 31.5 % (36.0-47.0); HEMOGLOBIN 10.1 g/dl (12.0-15.5); IMMATURE GRANULOCYTE % 0.2 % (0-3.0); LYMPH # 1.5 10^3/uL (1.5-4.5); LYMPH % 29.5 % (24.0-44.0); MEAN CORPUSCULAR HEMOGLOBIN 25.6 pg (27.0-33.0); MEAN CORPUSCULAR HGB CONC 32.1 g/dl (32.0-36.5); MEAN CORPUSCULAR VOLUME 79.7 fl (80.0-96.0); MONO # 0.3 10^3/uL (0.0-0.8); MONO % 5.9 % (0.0-5.0); NEUTROPHILS # 3.1 10^3/uL (1.8-7.7); NEUTROPHILS % 61.6 % (36.0-66.0); PLATELET COUNT, AUTOMATED 281 10^3/uL (150-450); RED BLOOD COUNT 3.95 10^6/uL (4.00-5.40); RED CELL DISTRIBUTION WIDTH 19.9 % (11.5-14.5); WHITE BLOOD COUNT 5.1 10^3/uL (4.0-10.0)
[2018-05-03] MEDS: ONDANSETRON 4MG/2ML VIAL (J2405) IV (12:40)
[2018-05-03] MEDS: MORPHINE 4 MG/ML 1ML VIAL/SYRINGE (J2270) IV (12:40)
[2018-05-03] MEDS: NS 1,000 ML IV (12:40)
[2018-05-03 13:16] LABS: ALBUMIN 3.9 GM/DL (3.2-5.2); ALBUMIN/GLOBULIN RATIO 1.08 (1.00-1.93); ALKALINE PHOSPHATASE 98 U/L (45-117); ALT/SGPT 15 U/L (12-78); ANION GAP 9 MEQ/L (8-16); AST/SGOT 11 U/L (7-37); BILIRUBIN,TOTAL 0.7 MG/DL (0.2-1.0); BLOOD UREA NITROGEN 15 MG/DL (7-18); CALCIUM LEVEL 8.3 MG/DL (8.5-10.1); CARBON DIOXIDE LEVEL 26 MEQ/L (21-32); CHLORIDE LEVEL 106 MEQ/L (98-107); GLOMERULAR FILTRATION RATE > 60.0 (>60); GLUCOSE, FASTING 91 MG/DL (70-100); HCG, SERUM QUANTITATIVE 33423 MIU/ML; POTASSIUM SERUM 3.3 MEQ/L (3.5-5.1); SODIUM LEVEL 141 MEQ/L (136-145); TOTAL PROTEIN 7.5 GM/DL (6.4-8.2)
[2018-05-03] MEDS: ACETAMINOPHEN 325 MG TAB PO (14:12)
[2018-05-03] MEDS: METOCLOPRAMIDE 10 MG TAB PO (14:12)
== END 2018-05-03 14:24 | disposition home or self-care (01) ==
LOC: M ED 10:03
DX: O99.011 Anemia complicating pregnancy, first trimester (principal); D53.9 Nutritional anemia, unspecified; R10.9 Unspecified abdominal pain; O36.8991 Maternal care for other specified fetal problems, unspecified trimester, fetus 1; O26.891 Other specified pregnancy related conditions, first trimester; N88.8 Other specified noninflammatory disorders of cervix uteri; Z3A.01 Less than 8 weeks gestation of pregnancy; Z87.59 Personal history of other complications of pregnancy, childbirth and the puerperium; F11.11 Opioid abuse, in remission; Z87.442 Personal history of urinary calculi; Z79.899 Other long term (current) drug therapy; O99.611 Diseases of the digestive system complicating pregnancy, first trimester; K21.9 Gastro-esophageal reflux disease without esophagitis; O99.280 Endocrine, nutritional and metabolic diseases complicating pregnancy, unspecified trimester; E03.9 Hypothyroidism, unspecified; O99.341 Other mental disorders complicating pregnancy, first trimester; F41.9 Anxiety disorder, unspecified; F31.9 Bipolar disorder, unspecified; Z86.79 Personal history of other diseases of the circulatory system
CPT/HCPCS: J2270

== ENCOUNTER → 2018-05-05 | Outpatient (REF) | payer OTHER ==
[2018-05-05 19:51] LABS: HCG, SERUM QUANTITATIVE 46914 MIU/ML
[2018-05-10 09:10] LABS: APTT 24.6 sec (.); Anticardiolipin Ab, IgA <10 APL (.); DRVTT Screen Seconds 38.2 sec (.)
== END ==
LOC: M SFHCPLAZ 14:35
DX: D50.9 Iron deficiency anemia, unspecified (principal)
CPT/HCPCS: 84702

== ENCOUNTER 2018-05-13 21:49 | Emergency (ER) | payer OTHER | END 2018-05-14 00:45 | disposition left against medical advice (07) | LOC: M ED 21:49 | DX: Z53.21 Procedure and treatment not carried out due to patient leaving prior to being seen by health care provider (principal) | CPT/HCPCS: 99281 ==

== ENCOUNTER 2018-05-15 19:22 | Emergency (ER) | payer OTHER ==
[2018-05-15 21:22] LABS: BASO # 0.1 10^3/uL (0.0-0.2); BASO % 0.8 % (0.0-1.0); EOS # 0.1 10^3/uL (0.0-0.50); EOS % 1.2 % (0.0-3.0); HEMOGLOBIN 9.6 g/dl (12.0-15.5); IMMATURE GRANULOCYTE % 0.1 % (0-3.0); LYMPH # 3.7 10^3/uL (1.5-4.5); LYMPH % 42.2 % (24.0-44.0); MEAN CORPUSCULAR HEMOGLOBIN 25.7 pg (27.0-33.0); MEAN CORPUSCULAR VOLUME 80.2 fl (80.0-96.0); MONO # 0.6 10^3/uL (0.0-0.8); MONO % 6.5 % (0.0-5.0); NEUTROPHILS # 4.3 10^3/uL (1.8-7.7); NEUTROPHILS % 49.2 % (36.0-66.0); PLATELET COUNT, AUTOMATED 332 10^3/uL (150-450); RED BLOOD COUNT 3.74 10^6/uL (4.00-5.40); RED CELL DISTRIBUTION WIDTH 20.5 % (11.5-14.5); WHITE BLOOD COUNT 8.7 10^3/uL (4.0-10.0)
[2018-05-15 21:47] LABS: ANION GAP 6 MEQ/L (8-16); BLOOD UREA NITROGEN 17 MG/DL (7-18); CALCIUM LEVEL 8.4 MG/DL (8.5-10.1); CARBON DIOXIDE LEVEL 26 MEQ/L (21-32); CHLORIDE LEVEL 109 MEQ/L (98-107); CREATININE FOR GFR 0.61 MG/DL (0.55-1.30); GLOMERULAR FILTRATION RATE > 60.0 (>60); GLUCOSE, FASTING 91 MG/DL (70-100); HCG, SERUM QUANTITATIVE 126529 MIU/ML; POTASSIUM SERUM 4.4 MEQ/L (3.5-5.1); SODIUM LEVEL 141 MEQ/L (136-145)
[2018-05-15] MEDS: LIDOCAINE VISCOUS 2% SOLN 15ML UDC MT (22:30)
[2018-05-15] MEDS: ACETAMINOPHEN 325 MG TAB PO (22:30)
== END 2018-05-15 22:49 | disposition home or self-care (01) ==
LOC: M ED 19:22
DX: O20.9 Hemorrhage in early pregnancy, unspecified (principal); Z3A.01 Less than 8 weeks gestation of pregnancy; O99.281 Endocrine, nutritional and metabolic diseases complicating pregnancy, first trimester; E03.9 Hypothyroidism, unspecified; O99.411 Diseases of the circulatory system complicating pregnancy, first trimester; I51.7 Cardiomegaly; O99.341 Other mental disorders complicating pregnancy, first trimester; F33.9 Major depressive disorder, recurrent, unspecified
CPT/HCPCS: 76801

== ENCOUNTER → 2018-05-26 | Outpatient (CLI) | payer OTHER ==
[2018-05-26 18:25] LABS: BASO % 0.6 % (0.0-1.0); EOS # 0.1 10^3/uL (0.0-0.50); EOS % 0.7 % (0.0-3.0); HEMATOCRIT 30.9 % (36.0-47.0); HEMOGLOBIN 9.6 g/dl (12.0-15.5); IMMATURE GRANULOCYTE % 0.3 % (0-3.0); LYMPH # 1.9 10^3/uL (1.5-4.5); LYMPH % 28.6 % (24.0-44.0); MEAN CORPUSCULAR HEMOGLOBIN 25.7 pg (27.0-33.0); MEAN CORPUSCULAR HGB CONC 31.1 g/dl (32.0-36.5); MEAN CORPUSCULAR VOLUME 82.8 fl (80.0-96.0); MONO # 0.3 10^3/uL (0.0-0.8); MONO % 5.1 % (0.0-5.0); NEUTROPHILS # 4.4 10^3/uL (1.8-7.7); NEUTROPHILS % 64.7 % (36.0-66.0); PLATELET COUNT, AUTOMATED 350 10^3/uL (150-450); RED BLOOD COUNT 3.73 10^6/uL (4.00-5.40); RED CELL DISTRIBUTION WIDTH 20.8 % (11.5-14.5); WHITE BLOOD COUNT 6.7 10^3/uL (4.0-10.0)
[2018-05-26 18:45] LABS: ALBUMIN 3.6 GM/DL (3.2-5.2); ALBUMIN/GLOBULIN RATIO 1.06 (1.00-1.93); ALKALINE PHOSPHATASE 65 U/L (45-117); ALT/SGPT 16 U/L (12-78); ANION GAP 9 MEQ/L (8-16); AST/SGOT 10 U/L (7-37); BILIRUBIN,TOTAL 1.1 MG/DL (0.2-1.0); BLOOD UREA NITROGEN 11 MG/DL (7-18); CALCIUM LEVEL 8.9 MG/DL (8.5-10.1); CARBON DIOXIDE LEVEL 27 MEQ/L (21-32); CHLORIDE LEVEL 107 MEQ/L (98-107); CREATININE FOR GFR 0.55 MG/DL (0.55-1.30); GLOMERULAR FILTRATION RATE > 60.0 (>60); GLUCOSE, FASTING 87 MG/DL (70-100); IRON (FE) 39 UG/DL (50-170); POTASSIUM SERUM 4.1 MEQ/L (3.5-5.1); SODIUM LEVEL 143 MEQ/L (136-145)
[2018-05-26 18:54] LABS: TOTAL 25(OH) VITAMIN D 11.4 NG/ML (30.0-100.0)
[2018-05-26 18:56] LABS: VITAMIN B12 LEVEL 562 PG/ML
[2018-05-26 18:57] LABS: FOLATE 14.7 NG/ML
[2018-05-26 19:05] LABS: RUBELLA IgG QUALITATIVE IMMUNE (IMMUNE)
[2018-05-26 19:34] LABS: HIV 1&2 SCREEN CENTAUR NEGATIVE (NEGATIVE)
[2018-05-28 09:51] LABS: HBsAg Prenatal NEGATIVE (NEGATIVE)
[2018-05-28 10:17] LABS: HEPATITIS C VIRUS ABY INDEX 0.3 INDEX (<0.8)
== END ==
LOC: M SMT 13:37
DX: Z34.81 Encounter for supervision of other normal pregnancy, first trimester (principal); Z3A.08 8 weeks gestation of pregnancy
CPT/HCPCS: 82746

== ENCOUNTER → 2018-06-10 | Outpatient (CLI) | payer OTHER ==
[2018-06-11 15:07] LABS: CHLAMYDIA DNA AMPLIFICATION NEGATIVE (NEGATIVE); GC DNA AMPLIFICATION NEGATIVE (NEGATIVE)
== END ==
LOC: M SMT 15:38
DX: Z34.81 Encounter for supervision of other normal pregnancy, first trimester (principal); Z11.3 Encounter for screening for infections with a predominantly sexual mode of transmission
CPT/HCPCS: 87086

== ENCOUNTER → 2018-07-29 | Outpatient (CLI) | payer OTHER ==
[2018-07-29 18:44] LABS: HEMOGLOBIN 9.4 g/dl (12.0-15.5); MEAN CORPUSCULAR HEMOGLOBIN 27.2 pg (27.0-33.0); MEAN CORPUSCULAR HGB CONC 31.3 g/dl (32.0-36.5); MEAN CORPUSCULAR VOLUME 86.7 fl (80.0-96.0); PLATELET COUNT, AUTOMATED 332 10^3/uL (150-450); RED BLOOD COUNT 3.46 10^6/uL (4.00-5.40); RED CELL DISTRIBUTION WIDTH 15.9 % (11.5-14.5); WHITE BLOOD COUNT 8.5 10^3/uL (4.0-10.0)
== END ==
LOC: M WUC 12:42
DX: Z34.82 Encounter for supervision of other normal pregnancy, second trimester (principal)
CPT/HCPCS: 85027

== ENCOUNTER → 2018-07-31 | Outpatient (CLI) | payer MEDICAID, SELFPAY, OTHER | LOC: M RAD 13:59 | DX: Z34.82 Encounter for supervision of other normal pregnancy, second trimester (principal); Z36.89 Encounter for other specified antenatal screening; Z3A.18 18 weeks gestation of pregnancy | CPT/HCPCS: 76811 ==

== ENCOUNTER 2018-08-11 13:11 | Outpatient (CLI) | payer MEDICAID, OTHER, SELFPAY ==
[2018-08-11 14:19] LABS: APPEARANCE, URINE CLEAR (CLEAR); BACTERIA, URINE AUTO NEGATIVE (NEGATIVE); BILIRUBIN, URINE AUTO NEGATIVE (NEGATIVE); BLOOD, URINE BLOOD NEGATIVE (NEGATIVE); COLOR, URINE YELLOW (YELLOW); GLUCOSE, URINE (UA) AUTO NEGATIVE (NEGATIVE); KETONE, URINE AUTO NEGATIVE (NEGATIVE); LEUKOCYTE ESTERASE, URINE AUTO NEGATIVE (NEGATIVE); MUCUS, URINE SMALL (NEGATIVE); NITRITE, URINE AUTO NEGATIVE (NEGATIVE); PROTEIN, URINE AUTO NEGATIVE (NEGATIVE); RBC, URINE AUTO 0 /HPF (0-3); SPECIFIC GRAVITY URINE AUTO 1.028 (1.002-1.035); SQUAMOUS EPITHELIAL CELL UR AU 1 /HPF (0-6); UROBILINOGEN, URINE AUTO 0.2 mg/dL (0.0-2.0); WBC, URINE AUTO 0 /HPF (0-3)
[2018-08-11 15:12] LABS: TOTAL PROTEIN,RANDOM URINE 21.3 MG/DL (0.0-12.0)
[2018-08-11 15:21] LABS: HEMATOCRIT 30.4 % (36.0-47.0); HEMOGLOBIN 9.6 g/dl (12.0-15.5); MEAN CORPUSCULAR HEMOGLOBIN 27.5 pg (27.0-33.0); MEAN CORPUSCULAR HGB CONC 31.6 g/dl (32.0-36.5); MEAN CORPUSCULAR VOLUME 87.1 fl (80.0-96.0); PLATELET COUNT, AUTOMATED 312 10^3/uL (150-450); RED BLOOD COUNT 3.49 10^6/uL (4.00-5.40); RED CELL DISTRIBUTION WIDTH 15.5 % (11.5-14.5); WHITE BLOOD COUNT 8.6 10^3/uL (4.0-10.0)
[2018-08-11] MEDS: FIORICET TAB PO (15:40)
[2018-08-11 15:53] LABS: ALT/SGPT 14 U/L (12-78); AST/SGOT 13 U/L (7-37); BILIRUBIN,TOTAL 0.3 MG/DL (0.2-1.0); CREATININE FOR GFR 0.46 MG/DL (0.55-1.30); GLOMERULAR FILTRATION RATE > 60.0 (>60); LDH LACTATE DEHYDROGENASE 174 U/L (84-246); URIC ACID 1.8 MG/DL (2.6-6.0)
== END 2018-08-11 17:21 | disposition home or self-care (01) ==
LOC: M LDO 13:11 → M LDI 13:11 → M LDO 17:21
DX: O26.892 Other specified pregnancy related conditions, second trimester (principal); Z3A.19 19 weeks gestation of pregnancy; Z87.59 Personal history of other complications of pregnancy, childbirth and the puerperium; O09.12 Supervision of pregnancy with history of ectopic pregnancy, second trimester; Z87.442 Personal history of urinary calculi
CPT/HCPCS: 76775

== ENCOUNTER 2018-09-07 19:17 | Outpatient (CLI) | payer OTHER, MEDICAID ==
[2018-09-07 19:54] LABS: APPEARANCE, URINE HAZY (CLEAR); BACTERIA, URINE AUTO NEGATIVE (NEGATIVE); BILIRUBIN, URINE AUTO NEGATIVE (NEGATIVE); BLOOD, URINE BLOOD NEGATIVE (NEGATIVE); COLOR, URINE YELLOW (YELLOW); GLUCOSE, URINE (UA) AUTO NEGATIVE (NEGATIVE); KETONE, URINE AUTO TRACE mg/dL (NEGATIVE); LEUKOCYTE ESTERASE, URINE AUTO NEGATIVE (NEGATIVE); MUCUS, URINE LARGE (NEGATIVE); NITRITE, URINE AUTO NEGATIVE (NEGATIVE); PROTEIN, URINE AUTO 1+ mg/dL (NEGATIVE); RBC, URINE AUTO 0 /HPF (0-3); SPECIFIC GRAVITY URINE AUTO 1.038 (1.002-1.035); SQUAMOUS EPITHELIAL CELL UR AU 14 /HPF (0-6); WBC, URINE AUTO 1 /HPF (0-3)
== END 2018-09-07 20:45 | disposition home or self-care (01) ==
LOC: M LDO 19:17
DX: O26.892 Other specified pregnancy related conditions, second trimester (principal); O99.282 Endocrine, nutritional and metabolic diseases complicating pregnancy, second trimester; E86.0 Dehydration; R10.9 Unspecified abdominal pain; O99.842 Bariatric surgery status complicating pregnancy, second trimester; Z3A.23 23 weeks gestation of pregnancy
CPT/HCPCS: 81001

== ENCOUNTER → 2018-09-30 | Outpatient (CLI) | payer OTHER | LOC: M RAD 14:17 | DX: O99.840 Bariatric surgery status complicating pregnancy, unspecified trimester (principal); Z3A.26 26 weeks gestation of pregnancy | CPT/HCPCS: 76816 ==

== ENCOUNTER → 2018-10-02 | Outpatient (CLI) | payer OTHER ==
[2018-10-02 18:33] LABS: BASO # 0.1 10^3/uL (0.0-0.2); BASO % 0.5 % (0.0-1.0); EOS # 0.1 10^3/uL (0.0-0.50); EOS % 0.8 % (0.0-3.0); HEMATOCRIT 25.8 % (36.0-47.0); HEMOGLOBIN 7.6 g/dl (12.0-15.5); IMMATURE GRANULOCYTE % 0.6 % (0-3.0); LYMPH # 1.9 10^3/uL (1.5-4.5); LYMPH % 17.7 % (24.0-44.0); MEAN CORPUSCULAR HEMOGLOBIN 25.5 pg (27.0-33.0); MEAN CORPUSCULAR HGB CONC 29.5 g/dl (32.0-36.5); MEAN CORPUSCULAR VOLUME 86.6 fl (80.0-96.0); MONO # 0.4 10^3/uL (0.0-0.8); MONO % 3.4 % (0.0-5.0); NEUTROPHILS # 8.2 10^3/uL (1.8-7.7); PLATELET COUNT, AUTOMATED 333 10^3/uL (150-450); RED BLOOD COUNT 2.98 10^6/uL (4.00-5.40); RED CELL DISTRIBUTION WIDTH 15.9 % (11.5-14.5); WHITE BLOOD COUNT 10.6 10^3/uL (4.0-10.0)
== END ==
LOC: M SMT 14:38
DX: Z34.83 Encounter for supervision of other normal pregnancy, third trimester (principal); Z36.89 Encounter for other specified antenatal screening
CPT/HCPCS: 85025

== ENCOUNTER → 2018-10-22 | Outpatient (CLI) | payer OTHER ==
[~2018-10-22] MED LIST changes: +ACET-683 PO; +ADDE1TAB14 PO; +ADDE20CA3 PO; +ALPR0.25 PO; +AMPH10CA PO; +AMPH20CA PO; +CEFD1CAP8 PO; +DIFL150T PO; +FLOM0.4C39 PO; -FLOM5CAP PO; +GABA-1171; -GABA-279; +IBUP-1022 PO; +LAMI1TAB7; +MAPA500T2 PO; +METF10004 PO; +NAPR-885 PO; +OLAN7.5T PO; +PRAZ2CAP; +PRENTAB9 PO; +REGL10TA6 PO; +REME15TA PO; +ROBA500T PO; +TUMS500C PO; +ZOFR4TAB14 PO; -ZOFR4TAB3 PO; +ZOLP10TA2
--- NOTE | 2018-10-22 18:02 | REP ---
Clinical: Growth evaluation. Comparison: 09/30/2018 . Findings: Examination demonstrates a single live intrauterine in cephalic presentation. motion is identified by technologist. Placenta is noted left fundal and grade II without evidence for placenta previa or abruption. Amniotic fluid volume is normal. Cervix measures 3.8 cm in length and appears closed. No evidence for nuchal cord. Gestational age by LMP 30 weeks 0 days with ROSA ISELA 12/31/2018 . Gestational age by current measurements 30 weeks 3 days with ROSA ISELA 12/28/2018 . FHR equals 131 beats per minute. BPD 7.9 cm 831 weeks 4 days HC 27.9 cm 30 weeks 4 days AC 26.4 cm 30 weeks 4 days FL 5.7 cm 30 weeks 0 days HL 5.1 cm 29 weeks 6 days HC/AC ratio 1.05 Estimated weight 1572 grams ( 52nd percentile). Amniotic fluid index: 17.4 cm (9.0 - 23.4) Umbilical cord SD ratio: 2.83 (2.50 - 3.50) Limited anatomical assessment demonstrates a small pericardial effusion. Impression: 1. Single live intrauterine in cephalic presentation demonstrating appropriate interval growth. 2. A small pericardial effusion is identified and may warrant followup. Electronically Signed by Biju Pereira MD 10/22/2018 05:53 P
== END ==
LOC: M RAD 15:57
PROVIDERS: ATTEND Advanced Practice Midwife
DX: O99.842 Bariatric surgery status complicating pregnancy, second trimester (principal); O24.419 Gestational diabetes mellitus in pregnancy, unspecified control; Z3A.30 30 weeks gestation of pregnancy; I31.3 Pericardial effusion (noninflammatory); O28.8 Other abnormal findings on antenatal screening of mother

== ENCOUNTER → 2018-10-31 | Outpatient (CLI) | payer OTHER ==
[2018-10-31 18:26] LABS: HEMATOCRIT 24.8 % (36.0-47.0); HEMOGLOBIN 7.3 g/dl (12.0-15.5); MEAN CORPUSCULAR HEMOGLOBIN 23.9 pg (27.0-33.0); MEAN CORPUSCULAR HGB CONC 29.4 g/dl (32.0-36.5); PLATELET COUNT, AUTOMATED 379 10^3/uL (150-450); RED BLOOD COUNT 3.06 10^6/uL (4.00-5.40)
[2018-10-31 18:30] LABS: ALT/SGPT 12 U/L (12-78); BILIRUBIN,TOTAL 0.7 MG/DL (0.2-1.0); CREATININE FOR GFR 0.58 MG/DL (0.55-1.30); GLOMERULAR FILTRATION RATE > 60.0 (>60); LDH LACTATE DEHYDROGENASE 162 U/L (84-246)
== END ==
LOC: M SMT 13:40
PROVIDERS: ATTEND Advanced Practice Midwife
DX: O09.523 Supervision of elderly multigravida, third trimester (principal); Z3A.00 Weeks of gestation of pregnancy not specified

== ENCOUNTER → 2018-10-31 | Outpatient (REF) | payer OTHER ==
[2018-11-03 14:22] LABS: TOTAL PROTEIN,RANDOM URINE 50.2 MG/DL (0.0-12.0)
== END ==
LOC: M LAB REF 13:04
PROVIDERS: ATTEND Advanced Practice Midwife
DX: O09.523 Supervision of elderly multigravida, third trimester (principal)

== ENCOUNTER 2018-11-07 08:58 | Outpatient (CLI) | payer OTHER ==
[~2018-11-07] VITALS: Ht 154.4 cm; Wt 85.0 kg
[2018-11-07] MEDS ORDERED: IRON SUCROSE 500 MG in NS 250 ML OVER 4 HRS IV ONE (09:00)
[2018-11-07 09:10] VITALS: BP 121/68
[2018-11-07 10:00] VITALS: BP 121/74
[2018-11-07 11:00] VITALS: BP 117/68
[2018-11-07 12:00] VITALS: BP 127/77
[2018-11-07 13:35] VITALS: BP 137/75
[2018-11-07 13:57] VITALS: BP 131/68
== END 2018-11-07 14:00 | disposition home or self-care (01) ==
LOC: M INFU 08:58
PROVIDERS: ATTEND Obstetrics & Gynecology
DX: D64.9 Anemia, unspecified (principal)
CPT/HCPCS: 96365; 96366; J1756

== ENCOUNTER → 2018-11-12 | Outpatient (CLI) | payer OTHER ==
--- NOTE | 2018-11-13 01:43 | REP ---
Clinical: Anatomical evaluation. Comparison: 10/22/2018 . Findings: Examination demonstrates a single live intrauterine in cephalic presentation. motion is identified by technologist. Placenta is noted left fundal and grade 1/2 without evidence for placenta previa or abruption. Amniotic fluid volume is normal. Cervix measures 3.5 cm in length and appears closed. No evidence for nuchal cord. Gestational age by LMP 33 weeks 0 days with ROSA ISELA 12/31/2018 . Gestational age by current measurements 33 weeks 5 days with ROSA ISELA 12/26/2018 . FHR equals 135 beats per minute. Amniotic fluid index: 13.3 cm (8.3 - 24.5) Umbilical cord SD ratio: 2.35 (2.00 - 3.00) Estimated weight 2283 grams ( 60th percentile). Anatomical assessment demonstrates normal structures including cranium, choroid plexus, cavum, cerebellum/posterior fossa, lungs, ventricular outflow tracts, diaphragm, stomach, cord insertion/three-vessel cord, kidneys/bladder, spine. Limited evaluation of the heart and extremities due to positioning. Bilateral renal pelviectasis noted but within normal range for age. Impression: 1. Single live intrauterine in cephalic presentation demonstrating appropriate interval growth. 2. Continued limited evaluation of the heart and extremities. Remainder of the anatomical assessment is complete and within normal limits. Electronically Signed by Biju Pereira MD 11/13/2018 01:35 A
== END ==
LOC: M RAD 16:09
PROVIDERS: ATTEND Advanced Practice Midwife
DX: O99.842 Bariatric surgery status complicating pregnancy, second trimester (principal); O24.419 Gestational diabetes mellitus in pregnancy, unspecified control; Z3A.33 33 weeks gestation of pregnancy

== ENCOUNTER → 2018-11-26 | Outpatient (REF) | payer OTHER | LOC: M LAB REF 10:32 | PROVIDERS: ATTEND Advanced Practice Midwife | DX: O09.523 Supervision of elderly multigravida, third trimester (principal) ==

== ENCOUNTER → 2018-12-03 | Outpatient (CLI) | payer OTHER ==
--- NOTE | 2018-12-03 20:23 | REP ---
Clinical: Growth evaluation. Comparison: 11/12/2018 . Findings: Examination demonstrates a single live intrauterine in cephalic presentation. motion is identified by technologist. Placenta is noted posterior fundal and grade grade 1 without evidence for placenta previa or abruption. Amniotic fluid volume is normal. Cervix measures 2.9 cm in length and appears closed. No evidence for nuchal cord. Gestational age by LMP 36 weeks 0 days with ROSA ISELA 12/31/2018 . Gestational age by current measurements 35 weeks 6 days with ROSA ISELA 01/01/2019 . FHR equals 124 beats per minute. BPD 8.9 cm 35 weeks 5 days HC 31.6 cm 35 weeks 3 days AC 33.3 cm 37 weeks 2 days FL 7.0 cm 36 weeks 0 days HL 6.0 cm 34 weeks 5 days HC/AC ratio 0.95 Estimated weight 2969 grams ( 60th percentile). Amniotic fluid index: 15.4 cm (7.7 - 24.9). Umbilical cord SD ratio: 2.38 (2.00 - 3.00). Impression: Single live intrauterine demonstrating appropriate interval growth. No gross abnormality identified. Electronically Signed by Biju Pereira MD 12/03/2018 08:14 P
== END ==
LOC: M RAD 15:28
PROVIDERS: ATTEND Advanced Practice Midwife
DX: O99.842 Bariatric surgery status complicating pregnancy, second trimester (principal); O24.419 Gestational diabetes mellitus in pregnancy, unspecified control; Z3A.36 36 weeks gestation of pregnancy

== ENCOUNTER 2018-12-07 00:38 | Inpatient (IN) | payer OTHER ==
[2018-12-07] VITALS (25 sets, daily range): BP systolic 108–163; BP diastolic 56–103
[~2018-12-07] VITALS: Ht 154.9 cm; Wt 86.4 kg
[2018-12-07] MEDS ORDERED: LR 1,000 ML IV SCH (01:10)
[2018-12-07 01:22] LABS: HEMATOCRIT 29.1 % (36.0-47.0); HEMOGLOBIN 8.4 g/dl (12.0-15.5); MEAN CORPUSCULAR HEMOGLOBIN 24.5 pg (27.0-33.0); MEAN CORPUSCULAR HGB CONC 28.9 g/dl (32.0-36.5); MEAN CORPUSCULAR VOLUME 84.8 fl (80.0-96.0); PLATELET COUNT, AUTOMATED 336 10^3/uL (150-450); RED BLOOD COUNT 3.43 10^6/uL (4.00-5.40)
[2018-12-07 01:43] LABS: ALT/SGPT 11 U/L (12-78); BILIRUBIN,TOTAL 0.4 MG/DL (0.2-1.0); CREATININE FOR GFR 0.58 MG/DL (0.55-1.30); GLOMERULAR FILTRATION RATE > 60.0 (>60); URIC ACID 3.4 MG/DL (2.6-6.0)
[2018-12-07 02:01] LABS: LDH LACTATE DEHYDROGENASE 182 U/L (84-246)
[2018-12-07] MEDS ORDERED: FENTANYL 2MCG/ML ROPIVACAINE 0.2% IN 0.9% NACL 100ML IVBAG As Ordered ONE (02:13)
[2018-12-07] MEDS: FENTANYL/ROPIVACAINE/NACL BAG 100 ML EPIDURAL SCH ×2 (02:40→09:35)
[2018-12-07] MEDS ORDERED: EPIDURAL/PCA KEYS XX PRN (02:40)
[2018-12-07] MEDS ORDERED: diphenhydrAMINE INJ 50MG/ML VIAL (J1200) IV PRN (02:40)
[2018-12-07] MEDS ORDERED: LACTATED RINGER'S 1000 ML IV PRN (02:40)
[2018-12-07] MEDS ORDERED: NALOXONE INJ 0.4 MG/1 ML VIAL (J2310) IV PRN (02:40)
[2018-12-07] MEDS ORDERED: EPIDURAL COMMENT XX SCH (02:40)
[2018-12-07] MEDS ORDERED: REFRIGERATOR IV KEYS XX PRN (02:40)
[2018-12-07] MEDS ORDERED: ePHEDrine SULFATE 25 MG/5 ML(5MG/ML) SYRINGE IV PRN (02:40)
[2018-12-07] MEDS ORDERED: ONDANSETRON 4MG/2ML VIAL (J2405) IV PRN ×3 (02:40→13:15)
[2018-12-07 04:38] LABS: AMPHETAMINES URINE REFLEX NEGATIVE (NEGATIVE); BARBITURATES URINE REFLEX NEGATIVE (NEGATIVE); BENZODIAZEPINES URINE REFLEX NEGATIVE (NEGATIVE); CANNABINOIDS URINE REFLEX NEGATIVE (NEGATIVE); COCAINE METABOLITE URINE REFLE NEGATIVE (NEGATIVE); METHADONE URINE REFLEX NEGATIVE (NEGATIVE); OPIATES URINE REFLEX NEGATIVE (NEGATIVE); PHENCYCLIDINE URINE REFLEX NEGATIVE (NEGATIVE)
[2018-12-07] MEDS ORDERED: INSULIN IV RATE CHANGE DOCUMENTATION ML/HR XX SCH (07:00)
[2018-12-07] MEDS ORDERED: NS 1,000 ML IV SCH (07:30)
--- NOTE | 2018-12-07 08:17 | NUR ---
L&D Note: S: Comfortable after epidural O: vss, AF cat 1 tracing, ctx q5mins gen: well appearing abd: nttp cx: 3/75/-2, min bleeding currently labs: abruption labs neg A/P: 38yo at 36w4d with vaginal bleeding concerning for abruption -stable Active labor Reassuring status A2GDM- will start fingerstick and insulin drip per protocol Maggy Almonte MD
[2018-12-07] MEDS ORDERED: OXYTOCIN DRIP 30 UNITS in APPROPRIATE DILUENT 1 EA IV SCH ×2 (08:30→12:58)
[2018-12-07] MEDS ORDERED: INSULIN HUMAN REGULAR 100 UNITS in NS 99 ML IV SCH (09:00)
[2018-12-07] MEDS ORDERED: ceFAZolin 2 GM/D5W 50 ML IV BAG (J0690 PER 500MG) As Ordered ONE (11:35)
[2018-12-07] MEDS ORDERED: BICITRA 30ML SOLN UDC As Ordered ONE (11:35)
[2018-12-07] MEDS ORDERED: BICITRA 30ML SOLN UDC PO ONE (11:45)
[2018-12-07] MEDS ORDERED: OXYTOCIN INJ 10 UNITS/ML VIAL (J2590) As Ordered ONE (11:51)
[2018-12-07] MEDS ORDERED: MORPHINE PRES-FREE INJ 10 MG/10 ML VIAL (J2274) As Ordered ONE (11:51)
--- NOTE | 2018-12-07 11:51 | NUR ---
- Call to room to assist patient. Pitocin off for cat II tracing with min to no variability and varibels. cx: /-2, unchanged, scant bleeding currently. I discussed these finding with patient and her familhy. I discussed that i do not think that her baby will tolerate much more of labor. I discussed proceeding with delivery. Patient agrees with plan. Will repeat labs in route to OR. Maggy Almonte MD
[2018-12-07] MEDS ORDERED: LIDOCAINE 2% W/EPIN INJ 20ML **PRES FREE As Ordered ONE (11:54)
[2018-12-07 11:55] LABS: HEMATOCRIT 24.8 % (36.0-47.0); HEMOGLOBIN 7.3 g/dl (12.0-15.5); MEAN CORPUSCULAR HEMOGLOBIN 24.7 pg (27.0-33.0); MEAN CORPUSCULAR HGB CONC 29.4 g/dl (32.0-36.5); MEAN CORPUSCULAR VOLUME 83.8 fl (80.0-96.0); PLATELET COUNT, AUTOMATED 281 10^3/uL (150-450); RED BLOOD COUNT 2.96 10^6/uL (4.00-5.40); WHITE BLOOD COUNT 13.3 10^3/uL (4.0-10.0)
[2018-12-07] MEDS ORDERED: dexameTHASONE 4 MG/ML 1ML VIAL (J1100) As Ordered ONE (12:22)
[2018-12-07] MEDS ORDERED: ONDANSETRON 4MG/2ML VIAL (J2405) As Ordered ONE (12:22)
[2018-12-07 12:23] LABS: CORD GAS ABE A -1.6; CORD GAS O2 SAT A 37.3 %; CORD GAS PH A 7.284 UNITS; CORD GAS PO2 A 18.3 mmHg; CORD GAS SBC A 21.7 MEQ/L; CORD GAS TCO2 A 27.7 MEQ/L
[2018-12-07 12:26] LABS: CORD GAS ABE V -2.3; CORD GAS HCO3 V 24.4 MEQ/L; CORD GAS PCO2 V 49.1 mmHg; CORD GAS PH V 7.314 UNITS; CORD GAS PO2 V 29.7 mmHg; CORD GAS SBC V 21.9 MEQ/L; CORD GAS TCO2 V 25.9 MEQ/L
[2018-12-07] MEDS ORDERED: PERCOCET 5MG/325MG TAB PO PRN (13:00)
[2018-12-07] MEDS ORDERED: RHOGAM 300 MCG (1500 IU) INJ (J2790) IM SCH (13:00)
[2018-12-07] MEDS ORDERED: MOM 30ML SUSPENSION UDC PO PRN (13:00)
[2018-12-07] MEDS ORDERED: MEASLES,MUMPS,RUBELLA VACCINE INJ (MMR-II) (90707) SC SCH (13:00)
[2018-12-07] MEDS ORDERED: fentaNYL 100 MCG/2 ML INJECTION (J3010) IV PRN (13:15)
[2018-12-07] MEDS ORDERED: NORCO, ANEXSIA 5/325MG TABLET (HYDROcodone/ACETAMINOPHEN) PO PRN (13:15)
[2018-12-07] MEDS ORDERED: OXYTOCIN 30 UNITS IN 0.9% NaCl 500ML IV BAG (J2590) As Ordered ONE (13:30)
[2018-12-07] MEDS ORDERED: NORCO, ANEXSIA 5/325MG TABLET (HYDROcodone/ACETAMINOPHEN) As Ordered ONE (14:19)
[2018-12-07] MEDS: PERCOCET 5MG/325MG TAB PO PRN ×2 (15:50→23:18)
[2018-12-07] MEDS: LR 1,000 ML IV SCH (18:26)
[2018-12-07 18:39] LABS: HEMATOCRIT 25.9 % (36.0-47.0); HEMOGLOBIN 7.8 g/dl (12.0-15.5); MEAN CORPUSCULAR HEMOGLOBIN 25.4 pg (27.0-33.0); MEAN CORPUSCULAR HGB CONC 30.1 g/dl (32.0-36.5); MEAN CORPUSCULAR VOLUME 84.4 fl (80.0-96.0); PLATELET COUNT, AUTOMATED 248 10^3/uL (150-450); RED BLOOD COUNT 3.07 10^6/uL (4.00-5.40); WHITE BLOOD COUNT 17.8 10^3/uL (4.0-10.0)
[2018-12-07] MEDS: KETOROLAC 30 MG/ML VIAL (J1885) IV SCH (19:45)
[2018-12-07] MEDS: DOCUSATE SODIUM 100 MG CAP PO SCH (21:17)
[2018-12-08] MEDS: KETOROLAC 30 MG/ML VIAL (J1885) IV SCH ×3 (01:51→13:43)
[2018-12-08 02:00] VITALS: BP 108/53
[2018-12-08] MEDS: LR 1,000 ML IV SCH (02:04)
[2018-12-08] MEDS ORDERED: PERCOCET PO (05:25)
--- NOTE | 2018-12-08 05:40 | NUR ---
POD#1 S: Doing well w/o complaints. Tolerating diet and pain well controlled. O: vss, AF gen: well appearing abd: soft, appropriately tender incision: dress ext: neg calf tenderness A/P: POD #1 s/p emergent 1LTCS - stable -continue /postoperative care -d/c plans for tomorrow or Saturday Maggy Almonte MD
[2018-12-08 06:00] VITALS: BP 111/66
[2018-12-08 06:10] LABS: HEMATOCRIT 23.8 % (36.0-47.0); HEMOGLOBIN 7.1 g/dl (12.0-15.5); MEAN CORPUSCULAR HEMOGLOBIN 25.4 pg (27.0-33.0); MEAN CORPUSCULAR HGB CONC 29.8 g/dl (32.0-36.5); MEAN CORPUSCULAR VOLUME 85.3 fl (80.0-96.0); PLATELET COUNT, AUTOMATED 223 10^3/uL (150-450); RED BLOOD COUNT 2.79 10^6/uL (4.00-5.40); WHITE BLOOD COUNT 11.6 10^3/uL (4.0-10.0)
--- NOTE | 2018-12-08 07:16 | RO ---
DATE OF PROCEDURE: 12/07/2018 PREPROCEDURE DIAGNOSIS: Antepartum hemorrhage concerning for placenta abruption. Persistent Category 2 heart rate tracing. POSTPROCEDURE DIAGNOSIS: Antepartum hemorrhage concerning for placenta abruption. Persistent Category 2 heart rate tracing. PROCEDURE: Primary lower transverse section. SURGEON: Dr. Maggy Almonte ACID TENDER: Dr. Tab Hill ANESTHESIA: Epidural. ESTIMATED BLOOD LOSS: 700 mL. URINE OUTPUT: 50 mL. INTRAVENOUS FLUIDS: 1200 mL of lactated ringer solution. One unit of packed red blood cells. PREOPERATIVE ANTIBIOTICS: 2 grams of Ancef. OPERATIVE FINDINGS: Live born female infant, Apgars 9 and 9, weight 3220 grams or 7 pounds 2 ounces. SPECIMENS: Cord gases and placenta. CORD GASES: 7.28, 7.31 with base excess -1.6, -2.3. INDICATION FOR PROCEDURE: Ms. Fountain is a 38-year-old, 7, para 0, who presented at 36 weeks 4 days estimated gestational age with large amounts of vaginal bleeding. She was examined and found to have approximately 150-200 mL of blood in the vaginal vault with scant amount of active bleeding. She was admitted and observed. She had a reactive tracing. She remained stable for several hours. Upon augmentation of her labor, secondary to placental abruption and there was loss of variability with repetitive variable deceleration, and a repeat CBC showed worsening hemoglobin/hematocrit (H/H) with a hemoglobin of 8.4 and a drop to 7.3, hematocrit 29.1 to 24.8, decision was then made to proceed with primary section with indication of placental abruption and persistent Category 2 heart rate tracing. DESCRIPTION OF PROCEDURE: After informed consent was obtained and written content was reviewed, the patient was brought to the operating room where she was placed in a supine position with a left lateral tilt. She had previously had a Doe catheter that was placed to gravity. She was then prepped and draped in normal sterile fashion. A time out in the operating room was then performed identifying the patient, the procedure to be performed, as well as drug allergies. Anesthesia was tested and deemed to be adequate. A Pfannenstiel skin incision was then made and carried down to the underlying rectus fascia. The fascia was scored and this incision was extended bilaterally. The fascia was then dissected off the underlying rectus muscles both superiorly and inferiorly. The rectus muscles were then in the midline. The peritoneum was then entered. The vesicouterine peritoneum was then identified, it was tented and excised to create a bladder flap. The bladder blade was then placed to retract back the bladder. A curvilinear incision was then made in the lower uterine segment. Amniotomy was then performed with clear fluid. The head was brought to the level of the incision atraumatically and delivered along with shoulders and corpus. The cord was clamped times two and was cut. The was taken over to the warmer where Dr. Preston, valve inserter, awaited. The placenta was then delivered with enormous amount of clot on the surface consistent with placenta abruption. The uterus was then exteriorized and cleared of all clots and debris. The uterine incision was then closed in two layers using #0 Vicryl, first in a running locked fashion, followed by a second layer for imbrication in a running nonlocking fashion. The abdomen was then suctioned. The uterus was returned to the patient's abdomen. It was reinspected and noted to be hemostatic. The anterior peritoneum was then reapproximated with #3-0 Vicryl. The rectus muscles were reapproximated with #3-0 Vicryl. The fascia was then closed with #0 Vicryl in a running nonlocking fashion. The subcutaneous tissue was then irrigated and suctioned. The subcutaneous tissue was then reapproximated with #3-0 Vicryl. Several subdermal stitches were placed with #3-0 Vicryl and the skin was then closed with #4-0 Monocryl in a subcuticular fashion. The incision was then cleaned and dried. It was dressed. The patient was taken to recovery in stable condition. Counts were correct. The couple has decided to name their daughter, Sabi. Dr. Hill, my surgical forceps fabricator, played an essential role during the surgery. He assisted with tissue identification and retraction, delivery of the , as well as, wound closure.
[2018-12-08] MEDS: DOCUSATE SODIUM 100 MG CAP PO SCH ×2 (07:43→21:00)
[2018-12-08] MEDS: PRENATAL VITAMINS CHEWABLE TABLET PO SCH (07:43)
[2018-12-08 10:10] VITALS: BP 104/65
[2018-12-08] MEDS: PERCOCET 5MG/325MG TAB PO PRN ×3 (10:45→22:41)
[2018-12-08 14:00] VITALS: BP 106/62
[2018-12-08 18:03] VITALS: BP 112/70
--- NOTE | 2018-12-08 20:51 | HPE ---
DATE OF ADMISSION: 12/07/2018 REASON FOR ADMISSION: Antepartum bleeding concerning for placenta abruption. HISTORY OF PRESENT ILLNESS: Ms. Fountain is a 38-year-old, 7, para 0, who presents at 36 weeks 4 days estimated gestational age by her last menstrual period, confirmed by a first trimester ultrasound, with acute onset of vaginal bleeding and abdominal pain. She reports overnight following intercourse she started to have a large amount of bleeding saturating through her bedsheets, blanket, and onto the floor. She started to experience severe abdominal pain and presented to labor and delivery for evaluation. She reported active movement. COURSE: Has been remarkable for: 1. Advanced maternal age. 2. A2 gestational diabetes mellitus. 3. Cholelithiasis confirmed in July of 2018. 4. Concerns for atrial septal defect. She did have a consultation at the center and a echo that was unremarkable. PAST MEDICAL HISTORY: Hypothyroidism. PAST SURGICAL HISTORY: 1. She has had a salpingectomy for an ectopic . 2. Gastric bypass. 3. She has had a recent blood transfusion in March of 2018 for anemia. PAST OBSTETRICAL HISTORY: She is a 7, para 0. She has had four ectopic pregnancies as well as two spontaneous abortions. MEDICATIONS: Includes: - vitamins - folic acid - iron - metformin ALLERGIES: She has no known drug allergies. PHYSICAL EXAMINATION: VITAL SIGNS: Blood pressure 157/101, temperature 97.8, pulse 86. She has a category 1 heart rate tracing with contractions approximately every 5 minutes on tocometer. GENERAL APPEARANCE: No acute distress, but does appear uncomfortable with contractions. LUNGS: Clear to auscultation bilaterally. CARDIOVASCULAR: Heart regular rate and rhythm. ABDOMEN: Gravid, nontender. STERILE SPECULUM EXAM: Reveals a large amount of blood clots with a small amount of active bleeding. Estimate approximately 150 mL of blood removed from the vaginal vault. CERVICAL EXAM: She was 1-2 cm dilated, 50% effaced, -3 station. LABORATORIES ON ADMISSION: Hemoglobin and hematocrit 8.4 and 29.1, her platelets 336. Fibrinogen 421. Kleihauer Betke was negative. She had a normal preeclamptic panel. LABORATORIES: Her blood type A positive. Antibody screen is negative. Rubella is immune. RPR is nonreactive. Hepatitis surface antigen is negative. HIV is negative. Hepatitis C is nonreactive. Chlamydia and gonorrhea screens were negative. She had a normal panorama free DNA testing. 1-hour Glucola. She is GBS negative. ASSESSMENT: 1. Ms. Fountain is a 38-year-old, 7, para 0 at 36 weeks 4 days estimated gestational age with what appears to be a stable placenta abruption. 2. Reassuring status. PLAN: 1. Admit to labor and delivery. Complete blood count (CBC), rapid plasma reagin (RPR), type and cross. 2. Insulin drop per labor and delivery (L and D) protocol. 3. Patient has been thoroughly counseled in regards to her diagnosis and concerns that this is possibly placenta abruption. Discussed the plan of proceeding with delivery. As long as she remains stable, we will proceed with a vaginal delivery. If bleeding persists or nonreassuring status, plan to move towards a delivery. She agrees with the care plan and has also been verbally consented for emergency surgery, blood products, and anesthesia. EMMA
[2018-12-08 22:00] VITALS: BP 122/81
[2018-12-09] MEDS: PERCOCET 5MG/325MG TAB PO PRN ×2 (03:52→07:59)
[2018-12-09 05:58] VITALS: BP 120/69
--- NOTE | 2018-12-09 06:38 | DS.PDOC ---
Discharge Summary General Date of Admission Dec 07, 2018 at 01:06 Date of Discharge 12/09/2018 Attending Physician: BORIS GARCIA MD. Discharge Summary PROCEDURES PERFORMED DURING STAY: Primary section. ADMITTING DIAGNOSES: 1. IUP at 36.4 weeks gestation. 2. AMA 3. A2GDM 4. bleeding-stable placenta abruption DISCHARGE DIAGNOSES: 1. Day 2 postoperative. COMPLICATIONS/CHIEF COMPLAINT: Labor Check; bleeding. HISTORY OF PRESENT ILLNESS: Patient is a 38-year-old female at 39 weeks gestation who presented to L&D for vaginal bleeding. She was diagnosed with a stable placenta abruption. The FHR strip became a persistent Category II FHR and the decision was made with the patient to proceed to a section due to have a placenta abruption and a non-reassuring heart rate. DISCHARGE MEDICATIONS: Please see below. PHYSICAL EXAMINATION ON DISCHARGE: VITAL SIGNS: Please see below. GENERAL: A+Ox3 RESPIRATORY EXAMINATION: regular rate and rhythm. ABDOMINAL EXAMINATION: Fundus firm at 2 below umbilicus. Dressing still applied to site. EXTREMITIES: generalized edema bilateral feet and legs. SKIN: warm, dry, without any unusual rashes. LABORATORY DATA: Please see below. ACTIVITY: As tolerated. DIET: regular DISCHARGE INSTRUCTIONS: 1. Patient to be discharged home. She is to follow-up in the office in 2 weeks and 6 weeks. 2. Education done on dressing removal-removal on day 5 . 3. Education done on mastitis, fever, DVT, pulmonary edema, hemorrhage, infection at the incision site, and cleaning of incision. DISCHARGE CONDITION: Stable. Vital Signs/I&Os Vital Signs Date Time Temp Pulse Resp B/P (MAP) Pulse Ox O2 Delivery O2 Flow Rate FiO2 12/09/18 05:58 99.1 68 16 120/69 (86) 98 I&O- Last 24 Hours up to 6 AM 12/09/18 06:00 Intake Total 150 ml Output Total 500 ml Balance -350 ml Laboratory Data CBC/BMP Item Value Date Time White Blood Count 11.6 10^3/uL H 12/08/1857 Red Blood Count 2.79 10^6/uL L 12/08/1857 Hemoglobin 7.1 g/dl L 12/08/18556 Hematocrit 23.8 % L 12/08/18556 Mean Corpuscular Volume 85.3 fl 2/11/19 0557 Mean Corpuscular Hemoglobin 25.4 pg L 12/08/18 0557 Mean Corpuscular Hemoglobin Concent 29.8 g/dl L 12/08/18 0557 Red Cell Distribution Width 21.9 % H 12/08/18 0557 Platelet Count 223 10^3/uL 12/08/18 0557 Item Value Date Time White Blood Count 17.8 10^3/uL H 12/07/18 1828 Red Blood Count 3.07 10^6/uL L 12/07/18 1828 Hemoglobin 7.8 g/dl L 12/07/18 1828 Hematocrit 25.9 % L 12/07/18 1828 Mean Corpuscular Volume 84.4 fl 12/07/18 1828 Mean Corpuscular Hemoglobin 25.4 pg L 12/07/188 Mean Corpuscular Hemoglobin Concent 30.1 g/dl L 12/07/18 1828 Red Cell Distribution Width 22.0 % H 12/07/181827 Platelet Count 248 10^3/uL 12/07/181827 Discharge Medications Scheduled Metformin Hydrochloride (Metformin HCl) 1,000 Mg Tab, 1 TAB PO DAILY, (Reported) Multivitamins/ ( 27-0.8 mg) 1 Tab Tab, 1 TAB PO DAILY, (Reported) Scheduled PRN Acetaminophen (Mapap) 500 Mg Tab, 1,000 MG PO Q6HP PRN for PAIN, (Reported) Calcium Carbonate (Tums) 500 Mg Chw, 2 TAB PO QIDP PRN for HEARTBURN, (Reported) Oxycodone/Acetaminophen (Percocet 5MG/325MG Tablet) 1 Tab Tab, 1-2 TAB PO Q6HP PRN for PAIN Allergies Coded Allergies: No Known Allergies (Verified , 01/20/08) CLEMENCIA BURT CNM Dec 09, 2018 06:38
[2018-12-09] MEDS: DOCUSATE SODIUM 100 MG CAP PO SCH (07:57)
[2018-12-09] MEDS: PRENATAL VITAMINS CHEWABLE TABLET PO SCH (07:57)
[2018-12-09 10:42] LABS: HEMATOCRIT 27.6 % (36.0-47.0); HEMOGLOBIN 8.1 g/dl (12.0-15.5); MEAN CORPUSCULAR HEMOGLOBIN 25.2 pg (27.0-33.0); MEAN CORPUSCULAR HGB CONC 29.3 g/dl (32.0-36.5); PLATELET COUNT, AUTOMATED 289 10^3/uL (150-450); RED BLOOD COUNT 3.21 10^6/uL (4.00-5.40); WHITE BLOOD COUNT 11.5 10^3/uL (4.0-10.0)
== END 2018-12-09 13:00 | disposition home or self-care (01) | DRG 540 ==
LOC: M LDO 00:38 → M LDI 01:06 → M OBS 15:15
PROVIDERS: ADMIT Obstetrics & Gynecology; ATTEND Obstetrics & Gynecology
PROC: 10D00Z1 Extraction of Products of Conception, Low, Open Approach (ICD-10-PCS; principal; 2018-12-07 12:02)
DX: O45.8X3 Other premature separation of placenta, third trimester (principal); O24.429 Gestational diabetes mellitus in childbirth, unspecified control; Z37.0 Single live birth; Z3A.36 36 weeks gestation of pregnancy; O09.523 Supervision of elderly multigravida, third trimester

== ENCOUNTER → 2019-04-22 | Outpatient (REF) | payer OTHER ==
[~2019-04-22] MED LIST changes: +PERCOCET PO; +TRAM50TA2 PO; +TRAZ1TAB10 PO; -TRAZO50TA PO
[2019-04-25 00:06] LABS: HPV HYBRID CAPTURE II Positive (Negative)
== END ==
LOC: M LAB REF 18:31
PROVIDERS: ATTEND Obstetrics & Gynecology
DX: R87.610 Atypical squamous cells of undetermined significance on cytologic smear of cervix (ASC-US) (principal)

== ENCOUNTER → 2019-06-08 | Outpatient (CLI) | payer OTHER ==
[~2019-06-08] MED LIST changes: -AMPH10CA PO; +AMPH1CAP14 PO; +AMPH1CAP16 PO; -AMPH20CA PO
== END ==
LOC: M SMT 13:02
PROVIDERS: ATTEND Advanced Practice Midwife
DX: O20.0 Threatened abortion (principal)

== ENCOUNTER → 2019-07-20 | Outpatient (CLI) | payer OTHER ==
[~2019-07-20] MED LIST changes: +AMPH10CA PO; -AMPH1CAP14 PO; -AMPH1CAP16 PO; +AMPH20CA PO
[2019-07-20 17:29] LABS: BASO % 0.4 % (0.0-1.0); EOS # 0.1 10^3/uL (0.0-0.5); EOS % 1.7 % (0.0-3.0); HEMATOCRIT 30.9 % (36.0-47.0); HEMOGLOBIN 9.5 g/dl (12.0-15.5); LYMPH # 1.9 10^3/uL (1.5-5.0); LYMPH % 26.3 % (24.0-44.0); MEAN CORPUSCULAR HEMOGLOBIN 26.8 pg (27.0-33.0); MEAN CORPUSCULAR HGB CONC 30.7 g/dl (32.0-36.5); MONO # 0.4 10^3/uL (0.0-0.8); NEUTROPHILS # 4.7 10^3/uL (1.5-8.5); NEUTROPHILS % 65.5 % (36.0-66.0); PLATELET COUNT, AUTOMATED 310 10^3/uL (150-450); RED BLOOD COUNT 3.55 10^6/uL (4.00-5.40); WHITE BLOOD COUNT 7.2 10^3/uL (4.0-10.0)
[2019-07-20 17:31] LABS: FREE T4 0.65 NG/DL (0.76-1.46)
[2019-07-20 17:44] LABS: RUBELLA IgG QUALITATIVE IMMUNE (IMMUNE)
[2019-07-20 18:14] LABS: HIV 1&2 SCREEN CENTAUR NEGATIVE (NEGATIVE)
[2019-07-20 19:15] LABS: CHLAMYDIA DNA AMPLIFICATION NEGATIVE (NEGATIVE); GC DNA AMPLIFICATION NEGATIVE (NEGATIVE)
[2019-07-22 12:23] LABS: HEPATITIS C VIRUS ABY INDEX 0.1 INDEX (<0.8)
== END ==
LOC: M SMT 14:27
PROVIDERS: ATTEND Advanced Practice Midwife
DX: Z34.81 Encounter for supervision of other normal pregnancy, first trimester (principal)

== ENCOUNTER → 2019-08-07 | Outpatient (CLI) | payer OTHER ==
[~2019-08-07] MED LIST changes: -AMPH10CA PO; +AMPH1CAP14 PO; +AMPH1CAP16 PO; -AMPH20CA PO
== END ==
LOC: M LRY 13:53
PROVIDERS: ATTEND Advanced Practice Midwife
DX: O09.521 Supervision of elderly multigravida, first trimester (principal)

== ENCOUNTER → 2019-08-27 | Outpatient (CLI) | payer OTHER ==
[2019-08-27 17:20] LABS: FREE T4 0.73 NG/DL (0.76-1.46); THYROID STIMULATING HORMONE 4.79 uIU/ML (0.358-3.740)
== END ==
LOC: M SMT 11:14
PROVIDERS: ATTEND Advanced Practice Midwife
DX: O09.521 Supervision of elderly multigravida, first trimester (principal); Z3A.00 Weeks of gestation of pregnancy not specified

== ENCOUNTER → 2020-09-05 | Outpatient (REF) | payer OTHER ==
[~2020-09-05] MED LIST changes: -ATOM40CA PO; +ATOM40CA16 PO
== END ==
LOC: M PLALAB 14:08
PROVIDERS: ATTEND Obstetrics & Gynecology
DX: Z12.4 Encounter for screening for malignant neoplasm of cervix (principal)

== ENCOUNTER → 2020-11-18 | Outpatient (CLI) | payer OTHER ==
[~2020-11-18] MED LIST changes: +MIRT-62 PO; -REME15TA PO
[2020-11-18 16:36] LABS: BASO # 0.1 10^3/uL (0.0-0.2); BASO % 0.8 % (0.0-1.0); EOS # 0.1 10^3/uL (0.0-0.5); EOS % 1.2 % (0.0-3.0); HEMOGLOBIN 8.7 g/dl (12.0-15.5); LYMPH # 1.7 10^3/uL (1.5-5.0); LYMPH % 28.9 % (24.0-44.0); MEAN CORPUSCULAR HEMOGLOBIN 24.3 pg (27.0-33.0); MEAN CORPUSCULAR VOLUME 83.8 fl (80.0-96.0); MONO # 0.3 10^3/uL (0.0-0.8); MONO % 5.3 % (0.0-5.0); NEUTROPHILS # 3.8 10^3/uL (1.5-8.5); NEUTROPHILS % 63.6 % (36.0-66.0); PLATELET COUNT, AUTOMATED 367 10^3/uL (150-450); RED BLOOD COUNT 3.58 10^6/uL (4.00-5.40); WHITE BLOOD COUNT 5.9 10^3/uL (4.0-10.0)
[2020-11-18 16:47] LABS: HEMOGLOBIN A1c 6.1 %
[2020-11-18 16:57] LABS: ALBUMIN 3.5 GM/DL (3.2-5.2); ALT/SGPT 15 U/L (12-78); BILIRUBIN,TOTAL 0.6 MG/DL (0.2-1.0); BLOOD UREA NITROGEN 20 MG/DL (7-18); CALCIUM LEVEL 8.6 MG/DL (8.5-10.1); CARBON DIOXIDE LEVEL 26 MEQ/L (21-32); CHLORIDE LEVEL 107 MEQ/L (98-107); CHOLESTEROL LEVEL 144 MG/DL (<200); CHOLESTEROL RISK RATIO 2.716 (<5); CREATININE FOR GFR 0.77 MG/DL (0.55-1.30); FERRITIN < 3 NG/ML (8-252); FREE T4 0.63 NG/DL (0.76-1.46); GLOMERULAR FILTRATION RATE > 60.0 (>60); GLUCOSE, FASTING 93 MG/DL (70-100); HDL CHOLESTEROL 53 MG/DL (>40); LDL CHOLESTEROL 79 MG/DL (<100); NON-HDL-C 91 MG/DL; POTASSIUM SERUM 4.1 MEQ/L (3.5-5.1); SODIUM LEVEL 141 MEQ/L (136-145); TRIGLYCERIDES LEVEL 60 MG/DL (<150)
[2020-11-18 16:58] LABS: TOTAL 25(OH) VITAMIN D 13.2 NG/ML (30.0-100.0)
== END ==
LOC: M WUC 10:22
PROVIDERS: ATTEND Nurse Practitioner Family
DX: E03.9 Hypothyroidism, unspecified (principal); E55.9 Vitamin D deficiency, unspecified; D50.9 Iron deficiency anemia, unspecified; Z13.220 Encounter for screening for lipoid disorders; Z86.32 Personal history of gestational diabetes

== ENCOUNTER → 2021-01-17 | Outpatient (CLI) | payer OTHER ==
[2021-01-17 16:31] LABS: BASO # 0.1 10^3/uL (0.0-0.2); BASO % 0.8 % (0.0-1.0); EOS # 0.2 10^3/uL (0.0-0.5); EOS % 1.9 % (0.0-3.0); HEMATOCRIT 29.3 % (36.0-47.0); HEMOGLOBIN 8.5 g/dl (12.0-15.5); LYMPH # 2.3 10^3/uL (1.5-5.0); LYMPH % 27.4 % (24.0-44.0); MEAN CORPUSCULAR HEMOGLOBIN 24.1 pg (27.0-33.0); MEAN CORPUSCULAR VOLUME 83.2 fl (80.0-96.0); MONO # 0.5 10^3/uL (0.0-0.8); MONO % 5.4 % (2.0-8.0); NEUTROPHILS # 5.5 10^3/uL (1.5-8.5); NEUTROPHILS % 64.1 % (36.0-66.0); PLATELET COUNT, AUTOMATED 406 10^3/uL (150-450); RED BLOOD COUNT 3.52 10^6/uL (4.00-5.40); WHITE BLOOD COUNT 8.5 10^3/uL (4.0-10.0)
[2021-01-17 17:12] LABS: FREE T4 0.76 NG/DL (0.76-1.46)
[2021-01-17 17:15] LABS: TOTAL 25(OH) VITAMIN D 26.8 NG/ML (30.0-100.0)
== END ==
LOC: M WUC 11:40
PROVIDERS: ATTEND Nurse Practitioner Family
DX: E03.9 Hypothyroidism, unspecified (principal); E55.9 Vitamin D deficiency, unspecified; D50.9 Iron deficiency anemia, unspecified

== ENCOUNTER → 2021-04-18 | Outpatient (CLI) | payer OTHER ==
[~2021-04-18] MED LIST changes: +ARIP1TAB10 PO; +BENZ0.5T23 PO; +GABA-1171 PO; +LEVO100T5 PO; +ZOLP5TAB PO
[2021-04-18 18:03] LABS: BASO # 0.1 10^3/uL (0.0-0.2); BASO % 0.8 % (0.0-1.0); EOS # 0.1 10^3/uL (0.0-0.5); EOS % 1.3 % (0.0-3.0); HEMOGLOBIN 9.4 g/dl (12.0-15.5); LYMPH # 2.4 10^3/uL (1.5-5.0); LYMPH % 31.9 % (24.0-44.0); MEAN CORPUSCULAR HEMOGLOBIN 23.3 pg (27.0-33.0); MEAN CORPUSCULAR HGB CONC 29.4 g/dl (32.0-36.5); MEAN CORPUSCULAR VOLUME 79.4 fl (80.0-96.0); MONO # 0.3 10^3/uL (0.0-0.8); MONO % 4.2 % (2.0-8.0); NEUTROPHILS # 4.6 10^3/uL (1.5-8.5); NEUTROPHILS % 61.5 % (36.0-66.0); PLATELET COUNT, AUTOMATED 396 10^3/uL (150-450); RED BLOOD COUNT 4.03 10^6/uL (4.00-5.40); WHITE BLOOD COUNT 7.5 10^3/uL (4.0-10.0)
[2021-04-18 18:26] LABS: FREE T4 0.63 NG/DL (0.76-1.46); THYROID STIMULATING HORMONE 7.05 uIU/ML (0.358-3.740)
== END ==
LOC: M LAB 17:07
PROVIDERS: ATTEND Nurse Practitioner Family
DX: E03.9 Hypothyroidism, unspecified (principal); D50.9 Iron deficiency anemia, unspecified

== ENCOUNTER 2021-04-24 13:05 | Emergency (ER) | payer OTHER ==
[~2021-04-24] VITALS: Ht 154.9 cm; Wt 83.5 kg
[~2021-04-24 13:05] MED LIST changes: -ARIP1TAB10 PO; -BENZ0.5T23 PO; -GABA-1171 PO; -LEVO100T5 PO; -ZOLP5TAB PO
[2021-04-24] MEDS ORDERED: ARIP1TAB10 PO (13:34)
[2021-04-24] MEDS ORDERED: GABA-1171 PO (13:34)
[2021-04-24] MEDS ORDERED: ZOLP5TAB PO (13:34)
[2021-04-24] MEDS ORDERED: BENZ0.5T23 PO (13:34)
[2021-04-24] MEDS ORDERED: LEVO100T5 PO (13:34)
[2021-04-24 15:07] LABS: BASO # 0.1 10^3/uL (0.0-0.2); EOS # 0.1 10^3/uL (0.0-0.5); EOS % 1.3 % (0.0-3.0); HEMATOCRIT 28.8 % (36.0-47.0); HEMOGLOBIN 8.4 g/dl (12.0-15.5); LYMPH # 2.5 10^3/uL (1.5-5.0); LYMPH % 32.4 % (24.0-44.0); MEAN CORPUSCULAR HGB CONC 29.2 g/dl (32.0-36.5); MEAN CORPUSCULAR VOLUME 78.7 fl (80.0-96.0); MONO # 0.3 10^3/uL (0.0-0.8); MONO % 3.9 % (2.0-8.0); NEUTROPHILS # 4.7 10^3/uL (1.5-8.5); NEUTROPHILS % 61.3 % (36.0-66.0); PLATELET COUNT, AUTOMATED 343 10^3/uL (150-450); RED BLOOD COUNT 3.66 10^6/uL (4.00-5.40); WHITE BLOOD COUNT 7.7 10^3/uL (4.0-10.0)
[2021-04-24 15:41] LABS: BLOOD UREA NITROGEN 18 MG/DL (7-18); CALCIUM LEVEL 8.5 MG/DL (8.5-10.1); CARBON DIOXIDE LEVEL 26 MEQ/L (21-32); CHLORIDE LEVEL 110 MEQ/L (98-107); CREATININE FOR GFR 0.69 MG/DL (0.55-1.30); GLOMERULAR FILTRATION RATE > 60.0 (>60); GLUCOSE, FASTING 88 MG/DL (70-100); POTASSIUM SERUM 4.1 MEQ/L (3.5-5.1); SODIUM LEVEL 140 MEQ/L (136-145)
[2021-04-24 16:48] LABS: FERRITIN 3 NG/ML (8-252); IRON (FE) 18 UG/DL (50-170); TOTAL IRON BINDING CAPACITY 448 UG/DL (250-450)
[2021-04-24 18:05] VITALS: BP 134/78
== END 2021-04-24 18:06 | disposition home or self-care (01) ==
LOC: M ED 13:05
DX: R53.83 Other fatigue (principal)

== ENCOUNTER → 2022-01-09 | Outpatient (REF) | payer OTHER ==
[~2022-01-09] MED LIST changes: +ARIP1TAB10 PO; +BENZ0.5T23 PO; -CEFD1CAP8 PO; +CEFD300C41 PO; +FERR325T3 PO; +GABA-1171 PO; +GABA-282 PO; +LEVO100T5 PO; -OLAN7.5T PO; +OLAN7.5T8 PO; +VITA400T15 PO; +ZOLP5TAB PO
[2022-01-09 16:31] LABS: BASO # 0.1 10^3/uL (0.0-0.2); BASO % 0.6 % (0.0-1.0); EOS # 0.1 10^3/uL (0.0-0.5); HEMATOCRIT 38.1 % (36.0-47.0); HEMOGLOBIN 12.8 g/dl (12.0-15.5); LYMPH # 2.2 10^3/uL (1.5-5.0); MEAN CORPUSCULAR HEMOGLOBIN 31.8 pg (27.0-33.0); MEAN CORPUSCULAR HGB CONC 33.6 g/dl (32.0-36.5); MEAN CORPUSCULAR VOLUME 94.5 fl (80.0-96.0); MONO # 0.5 10^3/uL (0.0-0.8); MONO % 3.7 % (2.0-8.0); NEUTROPHILS # 9.5 10^3/uL (1.5-8.5); NEUTROPHILS % 76.4 % (36.0-66.0); PLATELET COUNT, AUTOMATED 341 10^3/uL (150-450); RED BLOOD COUNT 4.03 10^6/uL (4.00-5.40); WHITE BLOOD COUNT 12.4 10^3/uL (4.0-10.0)
[2022-01-09 17:10] LABS: ALBUMIN 3.7 GM/DL (3.2-5.2); ALT/SGPT 16 U/L (12-78); BILIRUBIN,DIRECT 0.2 MG/DL (0.0-0.2); BILIRUBIN,TOTAL 0.7 MG/DL (0.2-1.0); BLOOD UREA NITROGEN 15 MG/DL (7-18); CALCIUM LEVEL 8.9 MG/DL (8.5-10.1); CARBON DIOXIDE LEVEL 30 MEQ/L (21-32); CHLORIDE LEVEL 109 MEQ/L (98-107); CHOLESTEROL LEVEL 145 MG/DL (<200); CHOLESTEROL RISK RATIO 2.377 (<5); CREATININE FOR GFR 0.72 MG/DL (0.55-1.30); FREE T3 2.9 PG/ML (2.2-4.0); FREE T4 0.89 NG/DL (0.76-1.46); GLOMERULAR FILTRATION RATE > 60.0 (>58); GLUCOSE, FASTING 92 MG/DL (70-100); HDL CHOLESTEROL 61 MG/DL (>40); LDL CHOLESTEROL 74 MG/DL (<100); NON-HDL-C 84 MG/DL; PHOSPHORUS LEVEL 3.7 MG/DL (2.5-4.9); POTASSIUM SERUM 4.3 MEQ/L (3.5-5.1); SODIUM LEVEL 142 MEQ/L (136-145); TOTAL 25(OH) VITAMIN D 20.8 NG/ML (30.0-100.0); TOTAL PROTEIN 7.1 GM/DL (6.4-8.2); TRIGLYCERIDES LEVEL 50 MG/DL (<150)
[2022-01-09 19:35] LABS: HEMOGLOBIN A1c 5.4 %
== END ==
LOC: M LABDRAWC 15:33
PROVIDERS: ATTEND Nurse Practitioner Psychiatric/Mental Health
DX: Z51.81 Encounter for therapeutic drug level monitoring (principal); Z79.899 Other long term (current) drug therapy; Z13.6 Encounter for screening for cardiovascular disorders; Z13.1 Encounter for screening for diabetes mellitus; B55.9 Leishmaniasis, unspecified; F31.9 Bipolar disorder, unspecified

== ENCOUNTER → 2022-01-09 | Outpatient (REF) | payer OTHER ==
[2022-01-09 17:14] LABS: C REACTIVE PROTEIN QUANTITATIV < 0.30 MG/DL (0.00-0.30); FERRITIN 20 NG/ML (8-252); IRON (FE) 63 UG/DL (50-170); PERCENT SATURATION 17.6 % (13.2-45.0); RHEUMATOID FACTOR QUANT < 10.0 IU/ML (<15.0); TOTAL IRON BINDING CAPACITY 357 UG/DL (250-450)
== END ==
LOC: M SFHCLERA 11:45
PROVIDERS: ATTEND Student in an Organized Health Care Education/Training Program
DX: D50.9 Iron deficiency anemia, unspecified (principal); M25.60 Stiffness of unspecified joint, not elsewhere classified; E03.9 Hypothyroidism, unspecified

== ENCOUNTER → 2022-04-23 | Outpatient (CLI) | payer OTHER | LOC: M WHC 08:46 | PROVIDERS: ATTEND Student in an Organized Health Care Education/Training Program | DX: Z12.31 Encounter for screening mammogram for malignant neoplasm of breast (principal) ==

== ENCOUNTER → 2022-07-13 | Outpatient (CLI) | payer OTHER ==
[2022-07-13 17:18] LABS: BASO % 0.7 % (0.0-1.0); EOS # 0.1 10^3/uL (0.0-0.5); EOS % 2.3 % (0.0-3.0); HEMOGLOBIN 12.2 g/dl (12.0-15.5); LYMPH # 1.8 10^3/uL (1.5-5.0); LYMPH % 31.6 % (24.0-44.0); MEAN CORPUSCULAR HEMOGLOBIN 31.4 pg (27.0-33.0); MEAN CORPUSCULAR HGB CONC 32.1 g/dl (32.0-36.5); MEAN CORPUSCULAR VOLUME 97.9 fl (80.0-96.0); MONO # 0.2 10^3/uL (0.0-0.8); MONO % 4.2 % (2.0-8.0); NEUTROPHILS # 3.5 10^3/uL (1.5-8.5); PLATELET COUNT, AUTOMATED 255 10^3/uL (150-450); RED BLOOD COUNT 3.88 10^6/uL (4.00-5.40); WHITE BLOOD COUNT 5.7 10^3/uL (4.0-10.0)
[2022-07-13 17:20] LABS: HEMOGLOBIN A1c 5.4 %
[2022-07-13 17:30] LABS: ALBUMIN 3.4 GM/DL (3.2-5.2); ALT/SGPT 12 U/L (12-78); BILIRUBIN,TOTAL 0.8 MG/DL (0.2-1.0); BLOOD UREA NITROGEN 16 MG/DL (7-18); CALCIUM LEVEL 8.5 MG/DL (8.5-10.1); CARBON DIOXIDE LEVEL 25 MEQ/L (21-32); CHLORIDE LEVEL 109 MEQ/L (98-107); CHOLESTEROL LEVEL 142 MG/DL (<200); CHOLESTEROL RISK RATIO 2.581 (<5); CREATININE FOR GFR 0.68 MG/DL (0.55-1.30); FERRITIN 6 NG/ML (8-252); FREE T4 0.67 NG/DL (0.76-1.46); GLOMERULAR FILTRATION RATE > 60.0 (>58); GLUCOSE, FASTING 88 MG/DL (70-100); HDL CHOLESTEROL 55 MG/DL (>40); IRON (FE) 63 UG/DL (50-170); LDL CHOLESTEROL 74 MG/DL (<100); NON-HDL-C 87 MG/DL; PERCENT SATURATION 16.6 % (13.2-45.0); POTASSIUM SERUM 4.6 MEQ/L (3.5-5.1); SODIUM LEVEL 139 MEQ/L (136-145); TOTAL IRON BINDING CAPACITY 379 UG/DL (250-450); TOTAL PROTEIN 6.7 GM/DL (6.4-8.2); TRIGLYCERIDES LEVEL 63 MG/DL (<150)
[2022-07-13 17:53] LABS: THYROID PEROXIDASE ANTIBODY < 28.0 U/ML (<60.0); TOTAL 25(OH) VITAMIN D 23.2 NG/ML (30.0-100.0); VITAMIN B12 LEVEL 394 PG/ML (247-911)
[2022-07-15 08:08] LABS: FOLATE 10.8 ng/mL (>3.0)
== END ==
LOC: M WUC 11:07
PROVIDERS: ATTEND Family Medicine
DX: E03.8 Other specified hypothyroidism (principal); D50.9 Iron deficiency anemia, unspecified; E66.9 Obesity, unspecified; Z98.84 Bariatric surgery status

== ENCOUNTER → 2022-08-27 | Outpatient (CLI) | payer OTHER | LOC: M WUC 11:16 | PROVIDERS: ATTEND Family Medicine | DX: E03.8 Other specified hypothyroidism (principal) ==

== ENCOUNTER → 2022-09-27 | Outpatient (CLI) | payer OTHER ==
[~2022-09-27] MED LIST changes: +LEVO50TA5 PO; +SUMA50TA2 PO
== END ==
LOC: M LABSMTC 10:32
PROVIDERS: ATTEND Anesthesiology
DX: Z01.812 Encounter for preprocedural laboratory examination (principal); Z11.52 Encounter for screening for COVID-19

== ENCOUNTER 2022-10-02 09:12 | Day surgery (SDC) | payer OTHER ==
[~2022-10-02] VITALS: Ht 154.9 cm; Wt 89.8 kg
[~2022-10-02 09:12] MED LIST changes: +NS 1,000 ML IV ONE
[2022-10-02] MEDS ORDERED: propofoL 200 MG/20 ML VIAL As Ordered ONE (10:35)
[2022-10-02 12:00] VITALS: BP 135/84
== END 2022-10-02 12:00 | disposition home or self-care (01) ==
LOC: M OPP 09:12
PROVIDERS: ATTEND Internal Medicine Gastroenterology
DX: Z12.11 Encounter for screening for malignant neoplasm of colon (principal); Z83.71 Family history of colonic polyps; K63.5 Polyp of colon; K64.8 Other hemorrhoids; E03.9 Hypothyroidism, unspecified; F41.9 Anxiety disorder, unspecified; G43.909 Migraine, unspecified, not intractable, without status migrainosus; Z79.890 Hormone replacement therapy; Z79.899 Other long term (current) drug therapy

== ENCOUNTER → 2022-10-30 | Outpatient (REF) | payer OTHER ==
[~2022-10-30] MED LIST changes: -NS 1,000 ML IV ONE
== END ==
LOC: M PLALAB 16:32
PROVIDERS: ATTEND Obstetrics & Gynecology
DX: Z01.419 Encounter for gynecological examination (general) (routine) without abnormal findings (principal)

== ENCOUNTER → 2022-11-02 | Outpatient (CLI) | payer OTHER | LOC: M WHC 13:39 | PROVIDERS: ATTEND Obstetrics & Gynecology | DX: Z01.419 Encounter for gynecological examination (general) (routine) without abnormal findings (principal) ==

== ENCOUNTER → 2022-12-31 | Outpatient (CLI) | payer OTHER ==
[2022-12-31 17:19] LABS: HEMATOCRIT 37.5 % (36.0-47.0); HEMOGLOBIN 12.2 g/dl (12.0-15.5); MEAN CORPUSCULAR HGB CONC 32.5 g/dl (32.0-36.5); MEAN CORPUSCULAR VOLUME 95.2 fl (80.0-96.0); PLATELET COUNT, AUTOMATED 361 10^3/uL (150-450); RED BLOOD COUNT 3.94 10^6/uL (4.00-5.40); WHITE BLOOD COUNT 7.3 10^3/uL (4.0-10.0)
[2022-12-31 17:41] LABS: HEMOGLOBIN A1c 5.4 % (4.0-6.0)
[2022-12-31 17:43] LABS: IRON (FE) 36 UG/DL (50-170); PERCENT SATURATION 8.4 % (13.2-45.0); TOTAL IRON BINDING CAPACITY 427 UG/DL (250-425)
[2022-12-31 17:46] LABS: ALBUMIN 3.1 G/DL (3.2-5.2); ALKALINE PHOSPHATASE 68 U/L (46-116); ALT/SGPT 13 U/L (7.0-40); AST/SGOT 12 U/L (<34); BILIRUBIN,TOTAL 0.6 MG/DL (0.3-1.2); BLOOD UREA NITROGEN 15 MG/DL (9-23); CALCIUM LEVEL 8.1 MG/DL (8.5-10.1); CARBON DIOXIDE LEVEL 26 MMOL/L (20-31); CHLORIDE LEVEL 108 MMOL/L (98-107); CHOLESTEROL LEVEL 144 MG/DL (<200); CHOLESTEROL RISK RATIO 3.16 (<5); CREATININE FOR GFR 0.75 MG/DL (0.55-1.30); FERRITIN 2.1 NG/ML (7.3-270.7); GLOMERULAR FILTRATION RATE > 60.0 (>58); GLUCOSE, FASTING 96 MG/DL (60-100); HDL CHOLESTEROL 45.5 MG/DL (>40); LDL CHOLESTEROL 83.3 MG/DL (<100); NON-HDL-C 99 MG/DL; POTASSIUM SERUM 4.4 MMOL/L (3.5-5.1); SODIUM LEVEL 138 MMOL/L (136-145); THYROID STIMULATING HORMONE 4.918 uIU/ML (0.55-4.78); TOTAL 25(OH) VITAMIN D 29.6 NG/ML (20.0-100.0); TOTAL PROTEIN 6.5 G/DL (5.7-8.2); TRIGLYCERIDES LEVEL 76 MG/DL (<150); VITAMIN B12 LEVEL 486 PG/ML (211-911)
[2022-12-31 17:54] LABS: CREATININE, URINE 235.1 MG/DL; MAU/CREAT RATIO 4.2 MCG/MG (0.0-30.0)
[2023-01-02 08:10] LABS: INSULIN LEVEL 6.9 uIU/mL (2.6-24.9)
== END ==
LOC: M WUC 11:19
PROVIDERS: ATTEND Internal Medicine Hematology
DX: D50.9 Iron deficiency anemia, unspecified (principal); Z13.220 Encounter for screening for lipoid disorders

== ENCOUNTER 2023-01-24 09:35 | Outpatient (CLI) | payer OTHER ==
[~2023-01-24 09:35] MED LIST changes: +ALBUTEROL SULFATE 2.5MG/0.5ML INH NEB SOLN INH PRN; +EPINEPHrine INJ 1 MG/ML 1ML AMP IM PRN; +FERRIC CARBOXYMALTOSE INJ 750 MG in NS 250 ML (>50kg) IV ONE; +NS 1,000 ML IV SCH; +diphenhydrAMINE 50MG/ML VIAL IV PRN; +methylPREDNISolone 125MG 2ML VIAL IV PRN
[2023-01-24 10:50] VITALS: BP 126/73
== END 2023-01-24 11:00 | disposition home or self-care (01) ==
LOC: M INFU 09:35
PROVIDERS: ATTEND Internal Medicine Hematology
DX: D50.9 Iron deficiency anemia, unspecified (principal)
CPT/HCPCS: 96365; J1439

== ENCOUNTER → 2023-01-30 | Outpatient (CLI) | payer OTHER ==
[~2023-01-30] MED LIST changes: -ALBUTEROL SULFATE 2.5MG/0.5ML INH NEB SOLN INH PRN; -EPINEPHrine INJ 1 MG/ML 1ML AMP IM PRN; -FERRIC CARBOXYMALTOSE INJ 750 MG in NS 250 ML (>50kg) IV ONE; -NS 1,000 ML IV SCH; -diphenhydrAMINE 50MG/ML VIAL IV PRN; -methylPREDNISolone 125MG 2ML VIAL IV PRN
[2023-01-30 15:11] LABS: BASO % 0.4 % (0.0-1.0); EOS # 0.1 10^3/uL (0.0-0.5); EOS % 1.1 % (0.0-3.0); HEMOGLOBIN 12.4 g/dl (12.0-15.5); LYMPH # 1.5 10^3/uL (1.5-5.0); MEAN CORPUSCULAR HEMOGLOBIN 30.7 pg (27.0-33.0); MEAN CORPUSCULAR HGB CONC 31.8 g/dl (32.0-36.5); MEAN CORPUSCULAR VOLUME 96.5 fl (80.0-96.0); MONO # 0.3 10^3/uL (0.0-0.8); MONO % 3.6 % (2.0-8.0); NEUTROPHILS # 5.1 10^3/uL (1.5-8.5); NEUTROPHILS % 72.6 % (36.0-66.0); PLATELET COUNT, AUTOMATED 282 10^3/uL (150-450); RED BLOOD COUNT 4.04 10^6/uL (4.00-5.40)
[2023-01-30 15:30] LABS: FERRITIN 507.5 NG/ML (7.3-270.7); FREE T4 0.97 NG/DL (0.89-1.76); TOTAL 25(OH) VITAMIN D 41.6 NG/ML (20.0-100.0)
[2023-01-30 15:32] LABS: FOLATE 12.18 NG/ML (>5.4)
[2023-01-30 15:34] LABS: VITAMIN B12 LEVEL 354 PG/ML (211-911)
[2023-01-30 15:38] LABS: IRON (FE) 91 UG/DL (50-170); PERCENT SATURATION 25.9 % (13.2-45.0); TOTAL IRON BINDING CAPACITY 352 UG/DL (250-425)
[2023-01-30 15:39] LABS: ALBUMIN 3.2 G/DL (3.2-5.2); ALKALINE PHOSPHATASE 59 U/L (46-116); ALT/SGPT 12 U/L (7.0-40); AST/SGOT 13 U/L (<34); BILIRUBIN,TOTAL 0.4 MG/DL (0.3-1.2); BLOOD UREA NITROGEN 13 MG/DL (9-23); CALCIUM LEVEL 7.7 MG/DL (8.5-10.1); CARBON DIOXIDE LEVEL 23 MMOL/L (20-31); CHLORIDE LEVEL 110 MMOL/L (98-107); CHOLESTEROL LEVEL 123 MG/DL (<200); CREATININE FOR GFR 0.69 MG/DL (0.55-1.30); GLOMERULAR FILTRATION RATE > 60.0 (>58); GLUCOSE, FASTING 98 MG/DL (60-100); HDL CHOLESTEROL 40.9 MG/DL (>40); LDL CHOLESTEROL 69.7 MG/DL (<100); NON-HDL-C 82.1 MG/DL; POTASSIUM SERUM 4.3 MMOL/L (3.5-5.1); SODIUM LEVEL 139 MMOL/L (136-145); TOTAL PROTEIN 6.4 G/DL (5.7-8.2); TRIGLYCERIDES LEVEL 62 MG/DL (<150)
== END ==
LOC: M WUC 09:37
PROVIDERS: ATTEND Registered Nurse
DX: Z01.812 Encounter for preprocedural laboratory examination (principal); Z13.220 Encounter for screening for lipoid disorders; D51.9 Vitamin B12 deficiency anemia, unspecified; E51.9 Thiamine deficiency, unspecified; E55.9 Vitamin D deficiency, unspecified; E66.01 Morbid (severe) obesity due to excess calories

== ENCOUNTER → 2023-09-02 | Outpatient (CLI) | payer OTHER ==
[~2023-09-02] MED LIST changes: +BENZ0.5T2 PO; -BENZ0.5T23 PO; -CEFD300C41 PO; +CEFD300C42 PO; -MIRT-62 PO; +MIRT-88 PO
[2023-09-02 14:40] LABS: HEMOGLOBIN 13.9 g/dl (12.0-15.5); MEAN CORPUSCULAR HEMOGLOBIN 32.8 pg (27.0-33.0); MEAN CORPUSCULAR HGB CONC 33.9 g/dl (32.0-36.5); MEAN CORPUSCULAR VOLUME 96.7 fl (80.0-96.0); PLATELET COUNT, AUTOMATED 316 10^3/uL (150-450); RED BLOOD COUNT 4.24 10^6/uL (4.00-5.40); WHITE BLOOD COUNT 6.1 10^3/uL (4.0-10.0)
== END ==
LOC: M PLALAB 09:23
PROVIDERS: ATTEND Internal Medicine Hematology
DX: D50.9 Iron deficiency anemia, unspecified (principal)

== ENCOUNTER → 2023-12-30 | Outpatient (CLI) | payer OTHER ==
[~2023-12-30] MED LIST changes: +CEFD1CAP9 PO; -CEFD300C42 PO
[2023-12-30 14:40] LABS: BASO # 0.1 10^3/uL (0.0-0.2); BASO % 0.6 % (0.0-1.0); EOS # 0.1 10^3/uL (0.0-0.5); EOS % 0.6 % (0.0-3.0); HEMATOCRIT 44.8 % (36.0-47.0); HEMOGLOBIN 14.8 g/dl (12.0-15.5); LYMPH # 1.6 10^3/uL (1.5-5.0); MEAN CORPUSCULAR HEMOGLOBIN 32.1 pg (27.0-33.0); MEAN CORPUSCULAR VOLUME 97.2 fl (80.0-96.0); MONO # 0.3 10^3/uL (0.0-0.8); MONO % 3.3 % (2.0-8.0); NEUTROPHILS # 7.3 10^3/uL (1.5-8.5); NEUTROPHILS % 78.1 % (36.0-66.0); PLATELET COUNT, AUTOMATED 305 10^3/uL (150-450); RED BLOOD COUNT 4.61 10^6/uL (4.00-5.40); WHITE BLOOD COUNT 9.4 10^3/uL (4.0-10.0)
[2023-12-30 15:37] LABS: IRON (FE) 115 UG/DL (50-170)
[2023-12-30 15:38] LABS: FERRITIN 123.8 NG/ML (7.3-270.7); THYROID STIMULATING HORMONE 1.806 uIU/ML (0.55-4.78)
[2023-12-30 15:39] LABS: FOLATE 16.2 NG/ML (>5.4); FREE T4 1.07 NG/DL (0.89-1.76); VITAMIN B12 LEVEL 321 PG/ML (211-911)
[2023-12-30 15:40] LABS: ALBUMIN 3.4 G/DL (3.2-5.2); ALKALINE PHOSPHATASE 78 U/L (46-116); ALT/SGPT 14 U/L (7.0-40); AST/SGOT 10 U/L (<34); BILIRUBIN,TOTAL 0.8 MG/DL (0.3-1.2); BLOOD UREA NITROGEN 16 MG/DL (9-23); CALCIUM LEVEL 8.3 MG/DL (8.5-10.1); CARBON DIOXIDE LEVEL 26 MMOL/L (20-31); CHLORIDE LEVEL 107 MMOL/L (98-107); CREATININE FOR GFR 0.73 MG/DL (0.55-1.30); GLOMERULAR FILTRATION RATE > 60.0 (>58); GLUCOSE, FASTING 96 MG/DL (60-100); POTASSIUM SERUM 4.3 MMOL/L (3.5-5.1); SODIUM LEVEL 140 MMOL/L (136-145); TOTAL PROTEIN 6.8 G/DL (5.7-8.2)
== END ==
LOC: M PLALAB 09:38
PROVIDERS: ATTEND Internal Medicine Hematology
DX: E03.9 Hypothyroidism, unspecified (principal); Z98.84 Bariatric surgery status; D50.9 Iron deficiency anemia, unspecified

== ENCOUNTER → 2024-01-03 | Outpatient (CLI) | payer OTHER ==
[~2024-01-03] MED LIST changes: -KLON1TAB PO; +KLON1TAB13 PO
== END ==
LOC: M PLALAB 09:15
PROVIDERS: ATTEND Internal Medicine Hematology
DX: R78.79 Finding of abnormal level of heavy metals in blood (principal)

== ENCOUNTER → 2024-01-23 | Outpatient (CLI) | payer OTHER | LOC: M SLEEP HO 11:08 | PROVIDERS: ATTEND Internal Medicine Hematology | DX: R53.82 Chronic fatigue, unspecified (principal) ==

== ENCOUNTER → 2024-02-10 | Outpatient (CLI) | payer OTHER ==
[2024-02-10 13:14] LABS: BASO # 0.1 10^3/uL (0.0-0.2); EOS # 0.1 10^3/uL (0.0-0.5); EOS % 1.8 % (0.0-3.0); HEMATOCRIT 43.4 % (36.0-47.0); HEMOGLOBIN 14.6 g/dl (12.0-15.5); LYMPH # 1.6 10^3/uL (1.5-5.0); LYMPH % 31.7 % (24.0-44.0); MEAN CORPUSCULAR HEMOGLOBIN 32.4 pg (27.0-33.0); MEAN CORPUSCULAR HGB CONC 33.6 g/dl (32.0-36.5); MEAN CORPUSCULAR VOLUME 96.4 fl (80.0-96.0); MONO # 0.3 10^3/uL (0.0-0.8); MONO % 5.1 % (2.0-8.0); NEUTROPHILS # 3.1 10^3/uL (1.5-8.5); PLATELET COUNT, AUTOMATED 269 10^3/uL (150-450); WHITE BLOOD COUNT 5.1 10^3/uL (4.0-10.0)
[2024-02-11 05:14] LABS: CERULOPLASMIN 27.5 mg/dL (19.0-39.0)
== END ==
LOC: M PLALAB 09:33
PROVIDERS: ATTEND Internal Medicine Hematology
DX: D50.9 Iron deficiency anemia, unspecified (principal)